=== PATIENT | female | born 1970 | race Caucasian/White ===

== ENCOUNTER 2019-01-17 18:54 | Emergency (ER) | payer BC, SELFPAY ==
[2019-01-17 19:00] VITALS: BP 195/94; PULSE 60; RESP 16; TEMP 36.6; O2SAT 100
[2019-01-17] MEDS: Acetaminophen 500 MG TAB 1000 MG PO (19:10)
[2019-01-17] MEDS: Ibuprofen 600 MG TAB (19:10)
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
--- NOTE | 2019-01-17 21:07 | DI.RAD_ITS ---
SYMPTOM/DIAGNOSIS: POST REDUCTION RIGHT WRIST: Three views. Comparison from earlier in the day. There is again seen a comminuted intra-articular fracture of the distal right radius. Since the prior examination there has been significant improvement in the alignment of the fracture with near anatomic alignment present. No new fracture or dislocation is seen. The patient's wrist is in a cast. IMPRESSION: Reduction of the comminuted intra-articular fracture of the distal right radius with improved alignment.
[2019-01-17 21:20] VITALS: BP 152/85; PULSE 60; RESP 16; TEMP 36.8; O2SAT 99
--- NOTE | 2019-01-17 21:28 | DI.VRAD_ITS ---
EXAM: XR Right Wrist EXAM DATE/TIME: 01/17/2019 9:03 PM CLINICAL HISTORY: 48 years old, female; Injury or trauma; Follow-up exam; Fracture, traumatic injury; Closed fracture; Right; Distal end; Injury date: 01/17/2019; Injury details: Post reduction of impacted comminuted distal radius fracture TECHNIQUE: Imaging protocol: XR Right wrist. Views: 3 or more views. COMPARISON: CR XR wrist RT complete 01/17/2019 7:38 PM FINDINGS: Bones/joints: The bones are viewed through a cast degrading detail. An impacted comminuted fracture distal radius is again identified involving articular surface in improved alignment. Soft tissues: Normal. IMPRESSION: Improved alignment post casting of an impacted comminuted fracture of the distal radius involving articular surface of the wrist. Dictated and Authenticated by: Nick Flower MD. Ordering:FADI Drew MD
== END 2019-01-17 21:35 | disposition home or self-care (01) ==
PROVIDERS: Emergency Provider Physician Assistant
DX: S52.571A Other intraarticular fracture of lower end of right radius, initial encounter for closed fracture (principal); S40.211A Abrasion of right shoulder, initial encounter; V18.0XXA Pedal cycle driver injured in noncollision transport accident in nontraffic accident, initial encounter; Y93.55 Activity, bike riding
CPT/HCPCS: 25600; 73110; L3650

== ENCOUNTER 2019-01-24 11:09 | Outpatient (CLI) | payer BC, SELFPAY ==
--- NOTE | 2019-01-24 10:36 | DI.RAD_ITS ---
SYMPTOMS/DIAGNOSIS: F/U RIGHT WRIST: Comparison is made with December,. A splint is in place, which somewhat obscures the bony detail on the PA view. Comminuted fracture of the distal radius shows improved alignment when compared with the previous exam.
== END 2019-01-24 11:29 ==
PROVIDERS: Visit Provider Orthopaedic Surgery
DX: S52.571D Other intraarticular fracture of lower end of right radius, subsequent encounter for closed fracture with routine healing (principal)
CPT/HCPCS: 73100

== ENCOUNTER 2019-01-29 00:33 | Outpatient (CLI) | payer BC, SELFPAY ==
--- NOTE | 2019-01-29 11:31 | DI.CT_ITS ---
SYMPTOM/DIAGNOSIS: FX DISTAL END OF RT RADIUS, S52.501A RIGHT WRIST CT: CT examination of the wrist was performed according to the usual protocol. There is a comminuted impacted fracture of the distal radius. There is complex involvement of the distal articular surface of the radius, maximum displacement about 2 mm. No additional fracture is seen involving the ulna or the bones of the carpus. Carpal alignment appears within normal limits except for a questioned slight widening of the navicular lunate joint which could indicate ligamentous injury, acute versus chronic.
== END 2019-01-29 00:53 ==
PROVIDERS: Visit Provider Physician Assistant
DX: S52.501A Unspecified fracture of the lower end of right radius, initial encounter for closed fracture (principal)
CPT/HCPCS: 73200

== ENCOUNTER 2019-01-30 10:32 | Outpatient (CLI) | payer BC, SELFPAY ==
--- NOTE | 2019-01-30 10:29 | DI.RAD_ITS ---
SYMPTOM/DIAGNOSIS: F/U RIGHT WRIST: 01/30 No gross interval change in alignment of fracture fragments of the comminuted fracture of the distal radius in comparison with examination of January 24.
== END 2019-01-30 10:52 ==
PROVIDERS: Visit Provider Orthopaedic Surgery
DX: S52.571D Other intraarticular fracture of lower end of right radius, subsequent encounter for closed fracture with routine healing (principal)
CPT/HCPCS: 73100

== ENCOUNTER 2019-02-07 11:22 | Outpatient (CLI) | payer BC, SELFPAY ==
--- NOTE | 2019-02-07 10:49 | DI.RAD_ITS ---
EXAM: XR WRIST RT COMPLETE INDICATION: f/u. COMPARISON: XR wrist RT limited from 01/30/2019 TECHNIQUE: 2D digital imaging was performed. FINDINGS: Three views were obtained with the wrist in a cast. Previously described fracture of the distal radi us again noted with no gross interval change in alignment of the fracture fragments in comparison wit h the examination of January 30.
== END 2019-02-07 11:42 ==
PROVIDERS: Visit Provider Orthopaedic Surgery
DX: S52.571D Other intraarticular fracture of lower end of right radius, subsequent encounter for closed fracture with routine healing (principal)
CPT/HCPCS: 73110

== ENCOUNTER 2019-02-14 10:26 | Outpatient (CLI) | payer BC, SELFPAY ==
--- NOTE | 2019-02-14 10:15 | DI.RAD_ITS ---
EXAM: XR WRIST RT LIMITED INDICATION: F/U FRACTURE. COMPARISON: XR WRIST RT COMPLETE from 02/07/2019 TECHNIQUE: 2D digital imaging was performed. FINDINGS: AP and lateral images obtained through a fiberglass splint demonstrate no appreciable interval change in the status of a fracture involving the distal radius.
== END 2019-02-14 10:46 ==
PROVIDERS: Visit Provider Orthopaedic Surgery
DX: S52.511D Displaced fracture of right radial styloid process, subsequent encounter for closed fracture with routine healing (principal)
CPT/HCPCS: 73100

== ENCOUNTER 2019-02-21 11:46 | Outpatient (CLI) | payer BC, SELFPAY ==
--- NOTE | 2019-02-21 10:15 | DI.RAD_ITS ---
EXAM: XR WRIST RT LIMITED INDICATION: f/u. COMPARISON: XR wrist RT limited from 01/24/2019 XR WRIST RT LIMITED from 02/14/2019 TECHNIQUE: 2D digital imaging was performed. FINDINGS: There is no change in alignment of the comminuted fracture of the distal right radius. The patient's wrist is in a cast. This does obscure the underlying bony detail.
== END 2019-02-21 12:06 ==
PROVIDERS: Visit Provider Orthopaedic Surgery
DX: S52.571D Other intraarticular fracture of lower end of right radius, subsequent encounter for closed fracture with routine healing (principal)
CPT/HCPCS: 73100

== ENCOUNTER 2019-03-07 13:18 | Outpatient (CLI) | payer BC, SELFPAY ==
--- NOTE | 2019-03-07 11:11 | DI.RAD_ITS ---
EXAM: XR WRIST RT COMPLETE INDICATION: f/u. COMPARISON: XR WRIST RT LIMITED from 02/21/2019 TECHNIQUE: 2D digital imaging was performed. FINDINGS: Cast has been removed. There has been no change in the alignment of the comminuted intra-articular fracture of distal radius. There has been some interval healing when compared with the previous exam .
== END 2019-03-07 13:38 ==
PROVIDERS: Visit Provider Orthopaedic Surgery
DX: S52.511D Displaced fracture of right radial styloid process, subsequent encounter for closed fracture with routine healing (principal)
CPT/HCPCS: 73110

== ENCOUNTER 2019-12-18 10:24 | Outpatient (REF) | payer BC, SELFPAY ==
--- NOTE | 2019-12-18 09:20 | PAPFT_PTH ---
PATIENT: Julee Alaniz LOC: [facility] U#:[id number] AGE/SX: 49/F ROOM: RE12/18/[address]: KEENAN Alvarado : 1970 BED: DIS: 12/18/2019 SPEC #: [id number] RECD: 12/18/19 12:41 STATUS: GLENDA REQ #: [id number] ANNA: 12/18/19 09:[address]: Josy Randolph DEPT: [facility] Cytology RECD BY: Lilibeth Easley ENTERED: 12/18/19 12:41 SP TYPE: PAPFT OT DR: Unknown,Unknown Tissues: 1 - CX/ENDOCX FOR PAP SMEARS Procedures: PAP THIN PREP/UVM Screening HPV DNA PROBE Comments: [id number]
== END 2019-12-18 10:44 ==
LOC: LBN 10:24
PROVIDERS: Visit Provider Nurse Practitioner Family
DX: Z12.4 Encounter for screening for malignant neoplasm of cervix (principal); Z11.59 Encounter for screening for other viral diseases
CPT/HCPCS: 88142; 87624

== ENCOUNTER 2019-12-21 02:11 | Outpatient (CLI) | payer BC, SELFPAY ==
[2019-12-21 09:23] LABS: Abs Immature Grans 0.01 10^3/uL (0.0-0.06); Absolute Basophil Count 0.06 10^3/uL (0.0-0.2); Absolute Eosinophil Count 0.16 10^3/uL (0.0-0.7); Absolute Lymphocyte Count 2.01 10^3/uL (1.2-3.4); Absolute Monocyte Count 0.45 10^3/uL (0.1-0.8); Absolute Neutrophil Count 2.11 10^3/uL (1.2-6.7); Basophils % 1.3; Eosinophils % 3.3; HCT 39.1 % (36.0-46.0); Immature Grans % 0.2; Lymphocytes % 41.9; MCH 30.5 pg (27.0-33.0); MCHC 33.2 % (32.0-36.0); MCV 91.8 fL (80-95); Monocytes % 9.4; Neutrophils % 43.9; Platelet Count 320 10^3/uL (130-400); RBC 4.26 10^6/uL (3.93-5.22); RDW-SD 43.5 fL
[2019-12-21 09:45] LABS: Bilirubin Negative (Negative); Blood Negative (Negative); Clarity Clear (Clear); Glucose Negative (Negative); Ketones Negative (Negative); Leukocyte Esterase Negative (Negative); Nitrite Negative (Negative); Urobilinogen 0.2 EU/dL (Up TO 0.2); pH 7.5 (5-8)
[2019-12-21 10:15] LABS: ALT 38 U/L (14-59); AST 25 U/L (15-37); Albumin 3.7 g/dL (3.4-5.0); Alkaline Phosphatase 35 U/L (46-116); Anion Gap 6.8 mmol/L (3-11); BUN 13 mg/dL (7-18); Bilirubin, Total 0.6 mg/dL (0.2-1.0); CO2 29.2 mmol/L (21.0-32.0); CREATININE 0.71 mg/dL (0.55-1.02); Calcium 8.8 mg/dL (8.5-10.1); Chloride 105 mmol/L (98-107); FREE T4 1.01 ng/dL (0.76-1.46); Glucose 86 mg/dL (74-106); Potassium 4.4 mmol/L (3.5-5.1); Sodium 141 mmol/L (136-145); TSH 1.58 uIU/mL (0.36-3.74); Total Protein 6.8 g/dL (6.4-8.2)
[2019-12-21 10:30] LABS: Calculated LDL 144 mg/dL (<100); Cholesterol 232 mg/dL (<200); HDL Cholesterol 79 mg/dL (40-60); Triglyceride 48 mg/dL (<150)
[2019-12-21 17:23] LABS: T3,Free 3.9 pg/mL (2.8-5.3)
[2019-12-21 17:32] LABS: Estradiol 213 pg/mL (See Note); Progesterone 0.7 ng/mL (See Table)
== END 2019-12-21 02:31 ==
PROVIDERS: PCP Naturopath; Visit Provider Naturopath
DX: R53.83 Other fatigue (principal); N95.1 Menopausal and female climacteric states; F51.01 Primary insomnia; R42 Dizziness and giddiness; N91.5 Oligomenorrhea, unspecified; Z13.1 Encounter for screening for diabetes mellitus; Z13.220 Encounter for screening for lipoid disorders
CPT/HCPCS: 36415; 80053; 80061; 81003; 82670; 84144; 84439; 84443; 84481; 85025; 85303

== ENCOUNTER 2020-01-08 01:07 | Outpatient (CLI) | payer BC, SELFPAY ==
--- NOTE | 2020-01-08 16:00 | DI.MAMMO_ITS ---
EXAM: MAMMO SCREENING CLINICAL HISTORY: screening TECHNIQUE: Mammograms were interpreted according to the usual protocol including computer analysis w [employer] CAD system, tomosynthesis and C-view imaging. COMPARISON: 2008 through 2017 from [facility]. FINDINGS: The breasts are composed of heterogeneously dense fibroglandular densities, Breast Density category C . No suspicious masses or suspicious microcalcifications are seen. No skin thickening or abnormal axillary lymph nodes are seen. There has been no significant change from prior exams. IMPRESSION: BI-RADS Category 1: Negative mammogram Yearly screening mammography is recommended. Breast Density Category C, heterogeneously dense tissue which decreases the sensitivity of the mammog marci. The mammogram demonstrates the patient's breast tissue is dense. Dense breast tissue is very common a nd is not abnormal but dense breast tissue can make it harder to find cancer on a mammogram. Also, de nse breast tissue may increase breast cancer risk. This information about the result of the mammogram report was provided to the patient to raise their awareness. Use this report when you speak with the patient about their risks for breast cancer, which includes their family history. At that time, you may recommend additional screening tests (Ultrasound or MRI) as they might be useful based on their r isk. A negative radiographic report should not delay biopsy if a dominant or clinically suspicious mass is present. Up to ten percent of cancers are not identified on mammography. A negative report may reinforce clinical impression. Adenosis and dense breasts may obscure an underlying neoplasm. False positive reports average 6 to 10%.
== END 2020-01-08 01:27 ==
PROVIDERS: PCP Naturopath; Visit Provider Nurse Practitioner Family
DX: Z12.31 Encounter for screening mammogram for malignant neoplasm of breast (principal); R92.2 Inconclusive mammogram
CPT/HCPCS: 77063; 77067

== ENCOUNTER 2020-04-10 13:14 | Outpatient (REF) | payer BC, SELFPAY | END 2020-04-10 13:34 | LOC: LBN 13:14 | PROVIDERS: PCP Naturopath; Visit Provider Nurse Practitioner Family | DX: R30.0 Dysuria (principal) | CPT/HCPCS: 87086 ==

== ENCOUNTER 2020-07-23 14:06 | Outpatient (CLI) | payer BC, SELFPAY ==
--- NOTE | 2020-07-23 11:00 | RT.EKG_ITS ---
APPROVED REPORT Exam: Resting ECG Patient Location: O HR:53 bpm ECG Measurements Heart Rate 53 AXIS MI 201 P 23 QRSd 88 QRS 68 QT 435 T 23 QTc 410 Conclusion Sinus bradycardia...rate< 60 ST elevation secondary to LVH...Multiple VCG criteria
== END 2020-07-23 14:07 | disposition home or self-care (01) ==
LOC: RT 07-25 14:06
PROVIDERS: PCP Naturopath; Visit Provider Naturopath
DX: I10 Essential (primary) hypertension (principal)
CPT/HCPCS: 93005; 93010

== ENCOUNTER 2020-09-02 09:41 | Outpatient (CLI) | payer BC, SELFPAY ==
--- NOTE | 2020-09-02 09:30 | RT.EKG_ITS ---
APPROVED REPORT Exam: Resting ECG Patient Location: O HR:54 bpm ECG Measurements Heart Rate 54 AXIS TX 184 P 43 QRSd 76 QRS 72 QT 426 T 35 QTc 404 Conclusion Sinus rhythm...normal P axis, V-rate 50- 99 LVH voltage Baseline wander in lead(s) II,aVR
== END 2020-09-02 09:42 | disposition home or self-care (01) ==
LOC: DI.CARD 09:42
PROVIDERS: PCP Student in an Organized Health Care Education/Training Program; Visit Provider Internal Medicine Cardiovascular Disease
DX: I10 Essential (primary) hypertension (principal)
CPT/HCPCS: 93010

== ENCOUNTER 2020-09-19 02:03 | Outpatient (CLI) | payer BC, SELFPAY ==
[2020-09-19 08:13] LABS: Abs Immature Grans 0.01 10^3/uL (0.0-0.06); Absolute Basophil Count 0.06 10^3/uL (0.0-0.2); Absolute Eosinophil Count 0.24 10^3/uL (0.0-0.7); Absolute Lymphocyte Count 2.99 10^3/uL (1.2-3.4); Absolute Monocyte Count 0.46 10^3/uL (0.1-0.8); Absolute Neutrophil Count 2.43 10^3/uL (1.2-6.7); Eosinophils % 3.9; HCT 38.7 % (36.0-46.0); HGB 13.2 g/dL (11.2-15.7); Immature Grans % 0.2; Lymphocytes % 48.3; MCHC 34.1 % (32.0-36.0); MCV 90.8 fL (80-95); MPV 9.5 fL (8.0-11.0); Monocytes % 7.4; Neutrophils % 39.2; Nucleated RBC 0 %; Platelet Count 339 10^3/uL (130-400); RBC 4.26 10^6/uL (3.93-5.22); RDW 12.2 % (11.7-14.6); RDW-SD 40.8 fL; WBC 6.19 10^3/uL (4.4-10.8)
[2020-09-19 08:50] LABS: ALT 37 U/L (14-59); AST 20 U/L (15-37); Albumin 3.9 g/dL (3.4-5.0); Alkaline Phosphatase 38 U/L (46-116); Anion Gap 8.1 mmol/L (3-11); BUN 13 mg/dL (7-18); Bilirubin, Total 0.5 mg/dL (0.2-1.0); CO2 31.9 mmol/L (21.0-32.0); CREATININE 0.8 mg/dL (0.55-1.02); Calcium 9.3 mg/dL (8.5-10.1); Chloride 104 mmol/L (98-107); Glucose 92 mg/dL (74-106); Potassium 4.6 mmol/L (3.5-5.1); Sodium 144 mmol/L (136-145); Total Protein 7.3 g/dL (6.4-8.2)
[2020-09-19 08:59] LABS: Cholesterol 240 mg/dL (<200)
[2020-09-19 16:32] LABS: CRP, High Sensitivity 1.41 mg/L (See Note)
[2020-09-20 12:32] LABS: Apolipoprotein B, S 111 mg/dL
[2020-09-20 12:37] LABS: Apolipoprotein A1 166 mg/dL (>=140)
[2020-09-23 15:48] LABS: 25-Hydroxy D Total 69 ng/mL; 25-Hydroxy D2 <4.0 ng/mL; 25-Hydroxy D3 69 ng/mL
== END 2020-09-19 02:04 | disposition home or self-care (01) ==
LOC: LBO 02:03
PROVIDERS: PCP Student in an Organized Health Care Education/Training Program; Visit Provider Naturopath
DX: D50.9 Iron deficiency anemia, unspecified (principal); R53.83 Other fatigue; I10 Essential (primary) hypertension; E55.9 Vitamin D deficiency, unspecified; Z00.00 Encounter for general adult medical examination without abnormal findings; E78.00 Pure hypercholesterolemia, unspecified
CPT/HCPCS: 36415; 80053; 82172; 82306; 86141; 86900; 86901; 82465; 85025

== ENCOUNTER 2021-02-02 02:12 | Outpatient (CLI) | payer BC, SELFPAY ==
--- NOTE | 2021-02-02 | DI.MAMMO_ITS ---
Exam(s) MAMMO SCREENING EXAM: MAMMO SCREENING CLINICAL HISTORY: SCREENING, Z12.39 TECHNIQUE: Mammograms were interpreted according to the usual protocol including computer analysis w [employer] CAD system, tomosynthesis and C-view imaging. COMPARISON: 2011 through 2019 FINDINGS: The breasts are composed of heterogeneously dense fibroglandular densities, Breast Density category C . No suspicious masses or suspicious microcalcifications are seen. Scattered benign calcifications are again noted. No skin thickening or abnormal axillary lymph nodes are seen. There has been no significant change from prior exams. IMPRESSION: BI-RADS Cat 2 - Benign Findings Yearly screening mammography is recommended. Breast Density Category C, heterogeneously Dense. The mammogram demonstrates the patient's breast tissue is dense. Dense breast tissue is very common a nd is not abnormal but dense breast tissue can make it harder to find cancer on a mammogram. Also, de nse breast tissue may increase breast cancer risk. This information about the result of the mammogram report was provided to the patient to raise their awareness. Use this report when you speak with the patient about their risks for breast cancer, which includes their family history. At that time, you may recommend additional screening tests (Ultrasound or MRI) as they might be useful based on their r isk. A negative radiographic report should not delay biopsy if a dominant or clinically suspicious mass is present. Up to ten percent of cancers are not identified on mammography. A negative report may reinforce clinical impression. Adenosis and dense breasts may obscure an underlying neoplasm. False positive reports average 6 to 10%.
== END 2021-02-02 02:32 ==
PROVIDERS: PCP Student in an Organized Health Care Education/Training Program; Visit Provider Student in an Organized Health Care Education/Training Program
DX: Z12.31 Encounter for screening mammogram for malignant neoplasm of breast (principal)
CPT/HCPCS: 77063; 77067

== ENCOUNTER 2021-02-06 01:27 | Outpatient (CLI) | payer BC, SELFPAY ==
[2021-02-06 12:25] LABS: Source Nasal/Nares
[2021-02-06 16:37] LABS: COVID-19 PCR Negative (Negative)
== END 2021-02-06 01:28 | disposition home or self-care (01) ==
LOC: LBO 01:27
PROVIDERS: Surgery; PCP Student in an Organized Health Care Education/Training Program; Visit Provider Physical Therapy Assistant
DX: Z20.822 Contact with and (suspected) exposure to COVID-19 (principal)
CPT/HCPCS: 87635

== ENCOUNTER 2021-02-09 09:18 | Day surgery (SDC) | payer BC, SELFPAY ==
--- NOTE | 2021-02-09 06:49 | W.COLOREPORT ---
Colonoscopy Report Date of procedure: 02/09/21 Pre-op diagnosis general: Colon Cancer screening Post-op diagnosis procedure note: same (mild diverticulosis) Procedure: Colonoscopy Surgeon: Negrita Rao Anesthesia Type: General:No Airway (Yoselin Ramos CRNA) Estimated blood loss (mL): 0 Pathology: none sent Complications: None Disposition: same day Indications: The patient is here for Colonoscopy pre-op. She has no family history of colon cancer. She has not had any bowel habit changes. -Discussed colonoscopy bowel prep as well as the procedure. Discussed possible complications of the procedure to include bleeding, pain, perforation, missed small lesion/polyp, sore throat, aspiration and adverse reaction to the medications. Questions were answered to patient?s satisfaction. No guarantees were implied or given. Prep: Miralax/Dulcolax Procedure Start Time: 10:25 Procedure End Time: 10:47 Retraction Time: 13 minutes Procedure Description: After informed consent was obtained the patient was taken to the procedure room and placed in a left decubitous position. Monitors were applied and a time out was done. The patients name, date of , procedure, allergies to medications and metal in their body was reviewed. The patient was then sedated. Once sedated and comfortable a rectal exam was done. External exam was normal. Internal exam revealed a normal sphincter tone and no palpable masses. The scope was then introduced and retro-flexed. No internal hemorrhoids, polyps or masses were identified on retro-flexion. The scope was then advanced to the cecum without difficulty. The ileocecal vlave and appendiceal orifice were identified. The prep was good. The scope was then slowly retracted over 13 minutes back into the rectum. There were no polyps. There was mild sigmoid diverticulosis noted. The scope was removed and the patient was woken up and taken back to Same day surgery in stable condition. The patient tolerated the procedure well and there were no immediate complications. Follow up: The patient should follow up in 10 years unless they develop changes in bowel habits or other new gastrointestinal complaints.
--- NOTE | 2021-02-09 06:50 | W.PM.DSUDISC ---
Discharge Plan Disposition Patient Disposition: HOME Condition: Good Discharge Details Reason For Visit: Colonoscopy Attending Provider: Negrita Rao Primary Care Provider: Poppy Leblanc Home Meds and New Rx's Prescriptions: Continued lisinopril 20 mg tablet 20 mg PO DAILY Qty: 90 RF: 3 multivitamin Tablet 1 tab PO DAILY RF: 0 Discontinued polyethylene glycol 3350 17 gram/dose powder 238 g PO ONCE Qty: 238 RF: 0 bisacodyl [Dulcolax (bisacodyl)] 5 mg tablet,delayed release (DR/EC) 5 mg PO ONCE Qty: 4 RF: 0 Discharge Instructions Additional Instructions: Findings: mild diverticulosis Follow up: 10 years Please call if you develop: fevers >101.5 Nausea or Vomiting Abdominal pain that is not transient Rectal bleeding that is more then a tbsp A hard abdomen and inability to pass gas DAY SURGERY UNIT POST ENDOSCOPY INSTRUCTIONS Instructions for everyone who is given Anesthesia: For your safety, please do the following for the next 24 Hours: a. Do not drive or operate dangerous equipment b. Do not drink alcohol beverages or use any recreational drugs for the first 24 hours or while taking pain medications. The medications in your body may have a reaction that can be dangerous. c. Do not make any important decisions or sign any important papers 1. Generally there are no restrictions on your activity after a day or so has gone by, but you may feel a bit fatigued for a few days. 2. After you arrive home you may have a light meal and return to a normal diet as you can tolerate it without feeling sick to your stomach. 3. After surgery, you may feel pain or discomfort. This should be only transient, but if it persists please contact your doctor. 4. If there are any questions regarding the findings of your procedure, please feel free to contact your doctor. 6. If you are unable to contact your doctor with a problem, contact the hospital at [phone]. 7. Continue all your regular medications unless directed otherwise. I understand the above instructions and have no questions. Signature of Patient or Responsible Adult Escort Date/Time Name of Responsible Adult Escort Signature of Nurse Date/Time Activity:: Activity as Tolerated Diet:: high fiber diet Discharge Orders Discharge Orders: Discharge Order (Routine); Ordered 02/09/21 Ordered By: Negrita Rao
[2021-02-09 09:29] VITALS: BP 92/49; PULSE 48; RESP 18; TEMP 36.5; O2SAT 100
--- NOTE | 2021-02-09 09:29 | W.ANESPRE ---
General Info Date of Service Date Performed: 02/09/21 Height: 5 ft 2 in Weight: 55.395 kg Body Mass Index (BMI): 22.3 Surgical Procedure: Operation Date: 02/09/21 10:35 Proposed Procedures Side Surgeon p Colonoscopy Negrita Rao MD Meds Allergies and Home Medications Allergies Allergy/AdvReac Type Severity Reaction Status Date / Time No Known Allergies Allergy Verified 02/09/21 09:34 Home Medication Medication Instructions Recorded multivitamin 1 tab PO DAILY 01/17/19 lisinopril 20 mg tablet 20 mg PO DAILY #90 tab 09/04/20 bisacodyl 5 mg tablet,delayed 5 mg PO ONCE #4 tab 01/30/21 release polyethylene glycol 3350 17 238 g PO ONCE #238 g 01/30/21 gram/dose oral powder Current Visit Medications: Current Medications Generic Name Dose Route Start Last Admin Trade Name Freq PRN Reason Stop Dose Admin Hyoscyamine Sulfate 0.125 mg 02/09/21 06:50 Hyoscyamine 0.125 Mg Sl/Oral/Chew SL DIRECTED PRN Ondansetron HCl 4 mg 02/09/21 06:50 Ondansetron 4 Mg/2 Ml Vial IVP Q4H PRN PRN Nausea / Vomiting PFSH Active Problems Active Problems: Problem Status Onset Code Health care maintenance Z00.00 Essential hypertension ~07/2020 I10 Nutritional deficiency, unspecified E63.9 Primary insomnia F51.01 Pure hypercholesterolemia, unspecified E78.00 Menopausal and female climacteric states N95.1 Medical History Medical History H/O abnormal cervical Papanicolaou smear s/p colposcopy Health care maintenance Menopausal and female climacteric states 05/29/17 Mononucleosis Nutritional deficiency, unspecified Primary insomnia Pure hypercholesterolemia, unspecified Familial? ASCVD Risk per ca.2% (10yr), no statin Tx ok. Wrist fracture, right Surgical History Surgical History H/O lumpectomy Benign left breast Bx - 2008 History of delivery x2 2002, 2004 Tobacco Smoking/Tobacco Use Status: Never Alcohol Alcohol Intake: never Substance Use Substance use: Occasionally Substance use type: marijuana Vital Signs and Lab Results Vital Signs Most Recent Vital Signs in EMR: Temp Pulse Resp BP Pulse Ox 36.5 C 48 L 18 92/49 L 100 02/09/21 09:29 02/09/21 09:29 02/09/21 09:29 02/09/21 09:29 02/09/21 09:29 Lab Results Blood Type / Crossmatch: No Data to Display Complete Blood Count: No Data to Display Complete Metabolic Panel: No Data to Display Liver Function Panel: No Data to Display Coagulation Panel: No Data to Display Cardiac Panel: No Data to Display Arterial Blood Gas: No Data to Display Venous Blood Gas: No Data to Display Pancreas Panel: No Data to Display Thyroid Panel: No Data to Display Infectious Disease: Coronavirus (COVID-19)(PCR) Negative (Negative) 02/06/21 12:24 02/06/21 Coronavirus 2019 Source Nasal/Nares 02/06/21 12:24 02/06/21 Blood Cultures: No Data to Display Toxicology Panel: No Data to Display Panel: No Data to Display Imaging and Studies Imaging and Studies EKG Summary: 08/2020: sinus rhythm, normal p axis. LVH voltage. Anesthesia Assessment and Plan Anesthesia History Personal History: No History of Anesthesia Complications Family History: No Family History of Anesthesia Complications Exercise Tolerance Exercise Tolerance: Metabolic Equivalents>4 Cardiac & Pulmonary Exam Cardiac Exam: Normal S1/S2 Heart Sounds Pulmonary Exam: Clear Bilateral Breath Sounds Airway Exam Known Difficult Airway: No Mallampati Class: 2 Mouth Opening: Normal (> 3cm) Thyromental Distance: Greater than 3 cm Neck Range of Motion: Full ROM Neck Circumference: Normal Teeth Condition: Normal Dentition ASA Classification ASA Score: ASA 2 Emergency Case?: No NPO Status NPO Status: NPO Clears >2 hours, Solids >8 hours Status Status: Not Relevant due to Medical History Anesthesia Plan Resuscitation Status: Full Code Anesthesia Technique: General Anesthesia Airway Planned: Natural Airway Monitors Used: Standard Monitors Preoperative Comments:: 51 yo female for screening colonoscopy. PMHX of HTN (on lisinopril).
[2021-02-09 09:49] VITALS: BMI 22.3
[2021-02-09] MEDS: Lactated Ringers 1,000 ML 80 ML IV (10:05)
[2021-02-09 10:57] VITALS: BP 166/82; PULSE 54; RESP 16; TEMP 36.1; O2SAT 98
[2021-02-09 11:32] VITALS: BP 150/92; PULSE 48; RESP 16; TEMP 36.3; O2SAT 100
--- NOTE | 2021-02-09 11:35 | W.ANESPOSTOP ---
Postoperative Evaluation Date, Time and Location Date Performed: 02/09/21 Time Performed: 11:02 Patient Location: Day Surgery Unit Vital Signs Most Recent Imported Vital Signs: Most Recent Vital Signs Temp Pulse Resp BP Pulse Ox 36.1 C L 54 L 16 166/82 H 98 02/09/21 10:57 02/09/21 10:57 02/09/21 11:32 02/09/21 10:57 02/09/21 10:57 Pain Score Most Recent Pain Score: Most Recent Pain Score Pain Level 0 02/09/21 11:32 Assessment Mental Status: Awake (Alert & Oriented to Patient Baseline) Airway and Respiratory Function: Patent airway with normal (patient baseline) respiratory exam Cardiovascular Function: Hemodynamically Stable Hydration Status: Adequately Hydrated Nausea & Vomiting: No Nausea or Vomiting Pain: Pt. Denies Any Pain Peripheral Nerve Block: Patient did not receive a nerve block
== END 2021-02-09 11:48 | disposition home or self-care (01) ==
LOC: SUR 09:18
PROVIDERS: PCP Student in an Organized Health Care Education/Training Program; Visit Provider Surgery
PROC: 0DJD8ZZ Inspection of Lower Intestinal Tract, Via Natural or Artificial Opening Endoscopic (ICD-10-PCS; CPT 45378; principal; 2021-02-09 10:30)
DX: Z12.11 Encounter for screening for malignant neoplasm of colon (principal); I10 Essential (primary) hypertension; K57.30 Diverticulosis of large intestine without perforation or abscess without bleeding
CPT/HCPCS: 45378; J2001

== ENCOUNTER 2021-12-25 01:33 | Outpatient (CLI) | payer BC, SELFPAY ==
[2021-12-25 07:46] LABS: Abs Immature Grans 0.01 10^3/uL (0.0-0.06); Absolute Basophil Count 0.06 10^3/uL (0.0-0.2); Absolute Eosinophil Count 0.26 10^3/uL (0.0-0.7); Absolute Lymphocyte Count 2.03 10^3/uL (1.2-3.4); Absolute Monocyte Count 0.46 10^3/uL (0.1-0.8); Absolute Neutrophil Count 2.34 10^3/uL (1.2-6.7); Basophils % 1.2; HCT 39.2 % (36.0-46.0); HGB 13.3 g/dL (11.2-15.7); Immature Grans % 0.2; Lymphocytes % 39.3; MCH 30.7 pg (27.0-33.0); MCHC 33.9 % (32.0-36.0); MCV 91 fL (80-95); MPV 9.7 fL (8.0-11.0); Monocytes % 8.9; Neutrophils % 45.4; Platelet Count 337 10^3/uL (130-400); RBC 4.33 10^6/uL (3.93-5.22); RDW 11.8 % (11.7-14.6); RDW-SD 39.5 fL; WBC 5.16 10^3/uL (4.4-10.8)
[2021-12-25 08:09] LABS: ALT 20 U/L (14-59); AST 19 U/L (15-37); Albumin 3.8 g/dL (3.4-5.0); Alkaline Phosphatase 35 U/L (46-116); Anion Gap 6.3 mmol/L (3-11); BUN 16 mg/dL (7-18); Bilirubin, Total 0.5 mg/dL (0.2-1.0); CO2 30.7 mmol/L (21.0-32.0); CREATININE 0.7 mg/dL (0.55-1.02); Calcium 8.9 mg/dL (8.5-10.1); Calculated LDL 143 mg/dL (<100); Chloride 106 mmol/L (98-107); Cholesterol 228 mg/dL (<200); Glucose 96 mg/dL (74-106); HDL Cholesterol 76 mg/dL (40-60); Potassium 3.8 mmol/L (3.5-5.1); Sodium 143 mmol/L (136-145); Total Protein 7.5 g/dL (6.4-8.2); Triglyceride 48 mg/dL (<150)
[2021-12-25 18:05] LABS: Progesterone 2.9 ng/mL (See Table)
[2021-12-28 09:47] LABS: DHEA Sulfate 98 ug/dL (56-283)
[2021-12-28 14:45] LABS: Apolipoprotein B, S 95 mg/dL
[2021-12-28 15:14] LABS: Apolipoprotein A1 149 mg/dL (>=140)
[2021-12-31 00:07] LABS: 25-Hydroxy D Total 46 ng/mL; 25-Hydroxy D2 <4.0 ng/mL; 25-Hydroxy D3 46 ng/mL
== END 2021-12-25 01:34 | disposition home or self-care (01) ==
LOC: LBO 01:33
PROVIDERS: PCP Student in an Organized Health Care Education/Training Program; Visit Provider Naturopath
DX: E78.00 Pure hypercholesterolemia, unspecified (principal); D50.9 Iron deficiency anemia, unspecified; R53.83 Other fatigue; I10 Essential (primary) hypertension; E55.9 Vitamin D deficiency, unspecified; N95.1 Menopausal and female climacteric states; Z86.16 Personal history of COVID-19
CPT/HCPCS: 36415; 80048; 80053; 80061; 82172; 82306; 82627; 84144; 85025

== ENCOUNTER → 2022-02-04 01:38 | Outpatient (CLI) | payer BC, SELFPAY ==
--- NOTE | 2022-02-04 09:02 | DI.MAMMO_ITS ---
Exam(s) MAMMO SCREENING EXAM: MAMMO SCREENING CLINICAL HISTORY: screening,z12.39 TECHNIQUE: Bilateral full field digital CC and MLO mammographic images were obtained with 3D tomosyn thesis and utilizing computer aided detection (CAD). COMPARISON: Available for comparison. FINDINGS: Masses/Architectural Distortion: None seen. There is a partially obscured nodule in the upper outer q uadrant of the left breast. It is shown slight increase in size. Microcalcifications: No suspicious pleomorphic-type are seen. Skin Thickening/Nipple Retraction: None. IMPRESSION: 1. Partially obscured 2.4 cm nodule in the upper outer quadrant of the left breast. 2. Further evaluation with a spot compression view and left breast ultrasound is recommended. BI-RADS Category 0 - Assessment Incomplete: Need additional imaging evaluation Breast Density - Category C - Heterogeneously dense Breast density category C or D implies that the patient has dense breast tissue. Dense breast tissue is very common and is not abnormal but dense breast tissue can make it harder to find cancer on a ma mmogram. Also, dense breast tissue may increase their breast cancer risk. This information about the result of the mammogram report was provided to the patient to raise their awareness. Use this report when you speak with the patient about their risks for breast cancer, which includes their family hist ory. At that time, you may recommend for more screening tests (Ultrasound or MRI) as they might be us eful based on their risk. A negative radiographic report should not delay biopsy if a dominant or clinically suspicious mass is present. Up to ten percent of cancers are not identified on mammography. A negative report may reinforce clinical impression. Adenosis and dense breasts may obscure an underlying neoplasm. False positive reports average 6 to 10%. Patient will receive a letter notifying them of these results.
== END ==
PROVIDERS: PCP Student in an Organized Health Care Education/Training Program; Visit Provider Nurse Practitioner Family
DX: Z12.31 Encounter for screening mammogram for malignant neoplasm of breast (principal); N63.21 Unspecified lump in the left breast, upper outer quadrant
CPT/HCPCS: 77063; 77067

== ENCOUNTER 2022-10-01 15:06 | Emergency (ER) | payer BC, SELFPAY ==
[2022-10-01] VITALS (37 sets, daily range): BP systolic 126–157; BP diastolic 77–97; PULSE 52–66; RESP 12–19; TEMP 36.4–37.1; O2SAT 96–100
--- NOTE | 2022-10-01 15:00 | RT.EKG_ITS ---
APPROVED REPORT Exam: Resting ECG Reason for Exam: chest pain Patient Location: E HR:57 bpm ECG Measurements Heart Rate 57 AXIS NJ 175 P 34 QRSd 89 QRS 42 QT 423 T 29 QTc 412 Conclusion Sinus bradycardia...rate< 60 No major change vs 09/02/20
--- NOTE | 2022-10-01 15:14 | ED.GENADUL_ITS ---
Discharge Plan Disposition Patient Disposition: Home Discharge Details Clinical Impression: Chest pain Primary Care Provider: Poppy Leblanc ED Provider: Lilibeth Stubbs Home Meds and New Rx's Prescriptions: Continued lisinopril 20 mg tablet 20 mg PO DAILY Qty: 90 3RF Discharge Instructions Instructions: Chest Pain (ED) Additional Instructions: Please follow-up with your primary care physician You need an outpatient stress test, I suggest that you follow-up with your doctor on Tuesday Please do not engage in any significant exertional activities until you are reassessed and have stress test Please return earlier should you have new or worsening complaints Referrals: Poppy Leblanc DO [Primary Care Provider] - Discharge Data Discharge Date/Time-TO BE ENTERED AT DEPARTURE: 10/01/22 19:15 Medical Decision Making <Davy Liriano NP - Last Filed: 10/02/22 08:10> Patient presenting to the emergency department for chief complaint of chest pain. Patient reports this morning while walking her dog she started having some chest pain that radiated into her neck and jaw. Pain is not as severe now as it was then but still having some discomfort. She states past medical history of hypertension controlled with lisinopril, elevated cholesterol, and that she does take hormone replacement due to menopausal symptoms. Patient denies all other symptoms. Physical exam is unremarkable and patient is well- appearing and nontoxic. Patient does state familial history of MIs with father having an DC in his 50s and mother also having cardiac history. We will plan on checking labs and EKG. Pending results we will give patient 324 of aspirin. Patient has a PERC score of 1 due to her hormone usage so we will perform D- dimer testing. Prior to obtaining troponins patient has heart score of 3. Please see physician interpretation for full interpretation of EKG but upon my review patient is in sinus bradycardia with no findings to suggest acute STEMI. <ANDREW Rhodes - Last Filed: 10/01/22 23:32> Patient presenting to the emergency department for chief complaint of chest pain. Patient reports this morning while walking her dog she started having some chest pain that radiated into her neck and jaw. Pain is not as severe now as it was then but still having some discomfort. She states past medical history of hypertension controlled with lisinopril, elevated cholesterol, and that she does take hormone replacement due to menopausal symptoms. Patient denies all other symptoms. Physical exam is unremarkable and patient is well- appearing and nontoxic. Patient does state familial history of MIs with father having an DC in his 50s and mother also having cardiac history. We will plan on checking labs and EKG. Pending results we will give patient 324 of aspirin. Patient has a PERC score of 1 due to her hormone usage so we will perform D- dimer testing. Prior to obtaining troponins patient has heart score of 3. Please see physician interpretation for full interpretation of EKG but upon my review patient is in sinus bradycardia with no findings to suggest acute STEMI. Care accepted and transition from Brody Liriano, nurse practitioner at 1600 pending repeat troponin and EKG Heart score of 3 We discussed admission, however patient at this time prefers to be discharged home, she is fully alert, oriented, of decisional capacity, she is aware that her story is concerning for cardiac etiology although she clinically appears well and her EKG and troponins are reassuring x2 She was observed for approximately 4 hours in the emergency department pain-free She is ordered an outpatient stress test for further evaluation and referred back to her primary care physician Discharge home pain-free with stable vitals Chest x-ray per radiology interpretation my review does not show evidence of acute abnormality HPI <Davy Liriano [employer]KER - Last Filed: 10/02/22 08:10> General Mode of arrival: ambulatory . Date/Time Provider Initiated Documentation: 10/01/22 15:08 . Limitations to Documentation: no limitations . Information obtained by: patient and RN notes reviewed . History of Present Illness 52 year old F presents to the emergency department with the chief complaint of Chest pain, Quality is described as aching and other (Pressure), and is localized to the chest. Patient neck. Patient started experiencing this hour(s) (6) and it has been constant. No relieving factors improve symptom(s), No exacerbating factors reported . Patient notes no other symptoms.. Patient did receive the following treatments prior to arrival, none Related Data Home Medications Medication Instructions Recorded Confirmed lisinopril 20 mg tablet 20 mg PO DAILY #90 tabs 09/28/22 10/01/22 Previous Rx's Medication Instructions Recorded lisinopril 20 mg tablet 20 mg PO DAILY #90 tabs 09/28/22 Allergies Allergy/AdvReac Type Severity Reaction Status Date / Time No Known Allergies Allergy Verified 01/20/22 15:25 General Stated Complaint: Chest Pain TUYET: 4 Review of Systems <Davy Liriano NP - Last Filed: 10/02/22 08:10> Constitutional Constitutional: Denies chills, Denies fever(s) and Denies malaise Cardiovascular Cardiovascular: Reports as per HPI, Reports chest pain, Denies chest pain with activity, Denies syncope, Denies irregular heart rhythm, Denies palpitations and Denies dyspnea Respiratory Respiratory: Denies cough, Denies hemoptysis and Denies dyspnea Gastrointestinal Gastrointestinal: Denies abdominal pain, Denies nausea and Denies vomiting Neurologic Neurologic: Denies syncope Psychiatric Psychiatric: Denies anxiety Endocrine Endocrine: Denies palpitations PFSH <Davy Liriano NP - Last Filed: 10/02/22 08:10> All Active Problems (Updated 10/01/22 @ 19:14 by ANDREW Rhodes) Chest pain (Acute) Postmenopausal (Acute) July 2020 Menopausal syndrome (hot flashes) (Acute) Primary insomnia (Acute) Essential hypertension (Acute ~07/2020) Pelvic floor weakness (Acute) Presumed 2' bearing children .. Hx frequency, incontinence (stress). [employer] training really brought frequency to light.. [ ] PT Health care maintenance (Acute) Nutritional deficiency, unspecified (Acute) Pure hypercholesterolemia, unspecified (Chronic) Familial? ASCVD Risk per ca.2% (10yr), no statin Tx ok. Medical History H/O abnormal cervical Papanicolaou smear s/p colposcopy Mononucleosis Wrist fracture, right Surgical History H/O lumpectomy Benign left breast Bx - 2008 History of delivery x2 2002, 2004 Normal colonoscopy (~01/2021) Family History Father Hypertension Throat cancer Mother Hypertension Alcohol abuse remission for 35 yrs Depression Sister Depression Hypertension Social History Smoking/Tobacco Use Status: Never Smoking risk assessment performed?: Yes Alcohol Intake: never Drug use: Occasionally Substance use type: marijuana Adopted: No Caregiver/Support person: No Foster care: No Household members: family Housing: house Number of Children: 2 Do you need help understanding health information?: Rarely Sexually active: Yes Do you think of yourself as: straight/heterosexual Current gender identity: female How often do you talk on the phone with friends or family?: three or more times per week Panel score (0-1 are the most socially isolated patients): 1 What type of physical activity do you participate in: walking, bicycling, other Details: rollerskating, hiking, running and yoga Frequency: daily Seatbelt use: always Drive intox or ride w/intox 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 Working smoke detector in home: Yes Fire extinguisher in home: Yes Carbon monox detector in home: Yes Do you feel safe at home: Yes Do you feel safe in your relationship?: Yes Female Reproductive History Menstrual Menopause type: natural (July 2020) History History 2 Para 2 Hx # Term Pregnancies Multiple births Hx # Pregnancies Ectopic pregnancies AB induced Hx Number of Living Children AB spontaneous Exam <Davy Liriano NP - Last Filed: 10/02/22 08:10> Const General: cooperative, healthy appearing, comfortable, no acute distress, not diaphoretic and not ill appearing Nutritional Appearance: average body habitus Orientation: alert, awake and oriented x3 Limitations: mental status not altered Neck Neck: normal visual inspection, full ROM, trachea midline, supple and no anterior neck swelling Thyroid: thyroid normal Carotids: normal carotid upstroke and no bruits Chest Chest: normal inspection of the chest Resp Effort & Inspection: normal respiratory effort and able to speak in complete sentences Auscultation: clear to auscultation bilaterally Cardio Jugular venous pressure: no JVD Palpation: normal PMI Rate: regular rate Rhythm: regular rhythm Heart Sounds: S1 normal, S2 normal, no click, no gallops, no murmurs and no rubs Bruits: no abdominal aortic bruits and no carotid bruits Pulses: radial pulses present bilaterally 2+ Skin General skin exam: no rashes or lesions noted Neuro General: patient alert, patient awake, patient oriented x3, tone normal and moves all extremities Sign Out <Davy Liriano NP - Last Filed: 10/02/22 08:10> Sign Out Data: Sign Out Comment: Patient signed out pending labs for chief complaint of chest pain. Patient in stable condition and received 324 of aspirin. Last updated by Davy Liriano NP at 10/01/22 15:30
[2022-10-01] MEDS: Aspirin 81 MG CHEW 324 MG CH (15:23)
[2022-10-01 15:43] LABS: Abs Immature Grans 0.01 10^3/uL (0.0-0.06); Absolute Basophil Count 0.06 10^3/uL (0.0-0.2); Absolute Eosinophil Count 0.25 10^3/uL (0.0-0.7); Absolute Lymphocyte Count 2.86 10^3/uL (1.2-3.4); Absolute Monocyte Count 0.72 10^3/uL (0.1-0.8); Absolute Neutrophil Count 3.71 10^3/uL (1.2-6.7); Basophils % 0.8; Eosinophils % 3.3; HCT 40.3 % (36.0-46.0); HGB 13.9 g/dL (11.2-15.7); Immature Grans % 0.1; Lymphocytes % 37.6; MCH 30.7 pg (27.0-33.0); MCHC 34.5 % (32.0-36.0); MCV 89 fL (80-95); MPV 9.5 fL (8.0-11.0); Monocytes % 9.5; Neutrophils % 48.7; Platelet Count 332 10^3/uL (130-400); RBC 4.53 10^6/uL (3.93-5.22); RDW 12.2 % (11.7-14.6); RDW-SD 39.5 fL; WBC 7.61 10^3/uL (4.4-10.8)
[2022-10-01 15:57] LABS: ALT 24 U/L (14-59); AST 18 U/L (15-37); Alkaline Phosphatase 53 U/L (46-116); Anion Gap 5.5 mmol/L (3-11); BUN 17 mg/dL (7-18); Bilirubin, Total 0.3 mg/dL (0.2-1.0); CO2 29.5 mmol/L (21.0-32.0); CREATININE 0.8 mg/dL (0.55-1.02); Calcium 9.2 mg/dL (8.5-10.1); Chloride 104 mmol/L (98-107); Glucose 88 mg/dL (74-106); Magnesium 2.1 mg/dL (1.8-2.4); Potassium 3.8 mmol/L (3.5-5.1); Sodium 139 mmol/L (136-145); Total Protein 7.8 g/dL (6.4-8.2); Troponin I < 50 ng/L (<or=60)
[2022-10-01 16:14] LABS: D-Dimer 225 ng/mlFEU (<500)
--- NOTE | 2022-10-01 16:30 | DI.RAD_ITS ---
Exam(s) XR CHEST 2V PA LATERAL EXAM: XR CHEST 2V PA LATERAL CLINICAL HISTORY: chest pain TECHNIQUE: 2D digital imaging was performed. COMPARISON: No exams were available for comparison FINDINGS: HEART: Normal size. Aorta: Not dilated. PULMONARY VASCULATURE: Normal. LUNGS: Clear. PLEURAL SPACE: No pleural effusion or pneumothorax. BONE:Unremarkable for age. IMPRESSION: No acute abnormality. DATA REPOSITORY: RADIATION DOSE DELIVERED:
--- NOTE | 2022-10-01 17:15 | RT.EKG_ITS ---
APPROVED REPORT Exam: Resting ECG Reason for Exam: chest pain Patient Location: E HR:54 bpm ECG Measurements Heart Rate 54 AXIS OK 189 P 37 QRSd 86 QRS 49 QT 432 T 30 QTc 411 Conclusion Sinus bradycardia...rate< 60 ST elev, probable normal early repol pattern...ST elevation, age<55
--- NOTE | 2022-10-01 17:19 | DI.VRAD_ITS ---
PROCEDURE INFORMATION: Exam: XR Chest Exam date and time: 10/01/2022 4:55 PM Age: 52 years old Clinical indication: Pain; Chest pressure TECHNIQUE: Imaging protocol: Radiologic exam of the chest. Views: 2 views. COMPARISON: CT upper extremity RT wo 01/29/2019 11:41 AM FINDINGS: Lungs: Unremarkable. No consolidation. Pleural spaces: Unremarkable. No pleural effusion. No pneumothorax. Heart/Mediastinum: Unremarkable. No cardiomegaly. Bones/joints: Unremarkable. IMPRESSION: No acute findings. Dictated and Authenticated by: Conrad Rosales MD. Ordering:SAUL Mcelroy MD
[2022-10-01 18:41] LABS: Troponin I < 50 ng/L (<or=60)
[2022-10-02 10:38] LABS: Lab Add On Test DONE
== END 2022-10-01 19:15 | disposition home or self-care (01) ==
PROVIDERS: Nurse Practitioner Family; Emergency Provider Physician Assistant; PCP Student in an Organized Health Care Education/Training Program
DX: E63.9 Nutritional deficiency, unspecified (principal); R07.9 Chest pain, unspecified; R89.9 Unspecified abnormal finding in specimens from other organs, systems and tissues; Z78.0 Asymptomatic menopausal state; I10 Essential (primary) hypertension; Z79.899 Other long term (current) drug therapy
CPT/HCPCS: 80053; 82306; 93005; 99284; 71046; 83735; 84484; 85025; 85379; 93010

== ENCOUNTER 2022-10-05 00:47 | Outpatient (CLI) | payer BC, SELFPAY ==
--- NOTE | 2022-10-05 06:05 | ETT_ITS ---
APPROVED REPORT Exam: Exercise Treadmill Patient Location: Out-Patient Room/Bed: Stress Nurse: Josy Grullon RN Ordering Provider:CANDELARIA LEOPOLDO, Contact Number: [phone] BMI: 23.77 Baseline Rhythm: Sinus Bradycardia Comment: 1 DHB Indications: evaluate for ischemia under stress, chest pain Medical History Medical History: HTN Cardiac Medications: Lisinopril Allergies: None known Cardiac Risk Factors: Family hx, HTN, pure hypercholesterolemia Previous Cardiac Procedures: None Pretest Chest Pain Characteristics: 07/02 pressure Exercise History: Physically active Physical Disabilities: None Lung Sounds: Clear to auscultation Heart Sounds: Regular Stress Test Details Test: Exercise stress testing was performed using a Damion protocol. Rest Stress HR Resting HR Supine: 57 bpm Max Heart Rate (APMHR): 168 bpm Resting HR Standin bpm Target HR (85% APMHR): 143 bpm Max HR Achieved: 169 bpm % of APMHR: 101 Recovery HR: 82 bpm HR response to stress: Normal HR response to stress BP Resting BP Supine: 170/95 mmHg Resting BP Standin/90 mmHg Max BP: 192/90 mmHg Recovery BP: 130/66 mmHg BP response to stress: Normal blood pressure response to stress. ECG Resting ECG: Sinus Bradycardia Ectopy: None Comment: 1 DH Stress ECG: Sinus Tachycardia ST Change: Horizontal ST depression, Downsloping ST depression Lead(s): inferior Stage: [address] Deviation: 1-3 mm Arrhythmia: Occasional PVC's Recovery ECG: Sinus Rhythm Recovery ST Change: No significant ST segment changes noted Recovery Arrhythmia: Frequent PVC's Comment: ST changes became upsloping in last stage of exercise and returned to baseline in recovery Clinical Reason for Termination: Target HR Achieved, Fatigue Stress Symptoms: Dyspnea, General Fatigue Exercise duration: 14 min24 sec Highest Stage Reached: Stage 5: 5.0 mph at 18% grade. Exercise capacity: 14.86 METs Angina Score: None Ceja Treadmill Score: 12.0 Rate Pressure Product: 46331 Stress ECG Conclusion 1. Resting electrocardiogram showed voltage for left ventricular hypertrophy 2. Patient exercised on the Damion protocol and completed a workload of 14.86 METS, above average exer cise capacity, no symptoms concerning for angina 3. Normal heart rate and blood pressure response to exercise. The patient achieved 100% of predicted heart rate for age 4. There was no electrocardiographic evidence of myocardial ischemia 5. Sporadic PVCs were noted Ceja Treadmill Score is 12.0 which is Low risk. Stress Test Summary STAGE Time (mins) Speed (mph) Grade (%) HR BP SpO2 SYMPTOMS METS Supine 57 170/95 98 2/10 chest pressure Standing 57 152/90 98 2/10 chest pressure 1 3 1.7 10 92 160/70 97 4.5 2 6 2.5 12 108 168/70 96 7 3 9 3.4 14 138 192/80 10 4 12 4.2 16 148 13 5 15 5.0 18 167 15
== END 2022-10-05 01:07 ==
LOC: DI 00:50
PROVIDERS: PCP Student in an Organized Health Care Education/Training Program; Visit Provider Student in an Organized Health Care Education/Training Program
DX: R07.9 Chest pain, unspecified (principal); Z78.0 Asymptomatic menopausal state; Z82.49 Family history of ischemic heart disease and other diseases of the circulatory system
CPT/HCPCS: 93017

== ENCOUNTER 2022-10-08 16:56 | Outpatient (CLI) | payer BC, SELFPAY ==
[2022-10-08 17:31] LABS: Magnesium 2.2 mg/dL (1.8-2.4)
== END 2022-10-08 16:57 | disposition home or self-care (01) ==
LOC: LBO 16:57
PROVIDERS: PCP Student in an Organized Health Care Education/Training Program; Visit Provider Nurse Practitioner Family
DX: R00.2 Palpitations (principal); I10 Essential (primary) hypertension
CPT/HCPCS: 36415; 83735; 84443

== ENCOUNTER 2022-10-29 08:34 | Outpatient (RCR) | payer BC, SELFPAY ==
--- NOTE | 2022-10-29 08:37 | HOLTER_ITS ---
APPROVED REPORT Conclusion This is a 48-hour Holter monitor ordered for palpitations Rhythm throughout is sinus with an average heart rate of 70. Minimum was 48, maximum 135 A total of 9 isolated premature ventricular contractions were seen There were a total of 10 isolated atrial premature beats There was no atrial fibrillation, no SVT, no high-grade AV block, no pauses greater than 3 seconds
== END 2022-11-19 23:59 | disposition home or self-care (01) ==
LOC: CARDOPNVT 08:34
PROVIDERS: PCP Student in an Organized Health Care Education/Training Program; Visit Provider Nurse Practitioner Family
DX: R00.2 Palpitations (principal); I49.1 Atrial premature depolarization
CPT/HCPCS: 93225; 93226

== ENCOUNTER 2023-02-04 11:44 | Outpatient (CLI) | payer BC, SELFPAY ==
[2023-02-04 08:24] LABS: Anion Gap 4.9 mmol/L (3-11); BUN 14 mg/dL (7-18); CO2 31.1 mmol/L (21.0-32.0); CREATININE 0.7 mg/dL (0.55-1.02); Calcium 9.3 mg/dL (8.5-10.1); Calculated LDL 149 mg/dL (<100); Chloride 106 mmol/L (98-107); Cholesterol 234 mg/dL (<200); Estimated GFR 103.35 (mL/min/1.73m2); Glucose 100 mg/dL (74-106); HDL Cholesterol 77 mg/dL (40-60); Sodium 142 mmol/L (136-145); Triglyceride 41 mg/dL (<150)
[2023-02-04 08:35] LABS: C-Reactive Protein 0.16 mg/dL (0.0-0.3)
[2023-02-04 08:46] LABS: Vitamin D 25 Total 42.2 ng/mL (30-100)
[2023-02-04 19:43] LABS: Estradiol 23 pg/mL (See Note); Progesterone 32.3 ng/mL (See Table)
[2023-02-07 08:53] LABS: DHEA Sulfate 111 ug/dL (56-283)
[2023-02-07 11:59] LABS: Apolipoprotein B, S 91 mg/dL; Lipoprotein (a) 52 nmol/L (<75)
[2023-02-07 16:23] LABS: Apolipoprotein A1 154 mg/dL (>=140)
[2023-02-10 17:19] LABS: Dehydroepiandrosterone (DHEA) 2.6 ng/mL (<6.0)
== END 2023-02-04 11:45 | disposition home or self-care (01) ==
LOC: LBO 11:45
PROVIDERS: PCP Student in an Organized Health Care Education/Training Program; Visit Provider Naturopath
DX: I10 Essential (primary) hypertension (principal); N95.1 Menopausal and female climacteric states; E78.00 Pure hypercholesterolemia, unspecified; F51.01 Primary insomnia; E63.9 Nutritional deficiency, unspecified; R42 Dizziness and giddiness; D50.9 Iron deficiency anemia, unspecified; E55.9 Vitamin D deficiency, unspecified; R53.83 Other fatigue; Z13.220 Encounter for screening for lipoid disorders
CPT/HCPCS: 36415; 80048; 80061; 82172; 82306; 82627; 83695; 86900; 86901; 82626; 82670; 84144; 86140

== ENCOUNTER 2024-01-13 00:42 | Outpatient (CLI) | payer BC, SELFPAY ==
--- OUTSIDE RECORDS SUMMARY | 2024-01-13 00:50 | XMS_ITS | Encounter Summary ---
Author Organization [facility] Address [address] [place] [address] Care Team Providers Care Nutrition Services Manager Name Role Phone Aung Vega MD Primary Care Provider Encounter Details Date Type Department Care Team (Late st Contact Info) Description 12/25/2021 Lab Requisition [facility] Pathology & Laboratory Medicine - [facility] [address], [place] [id number] Outr Resulting Lab, Provider Social History Tobacco Use Types Packs/Day Years Used Date Smoking Tobacco: Never Assessed Sex and Gender Information Value Date Recorded Sex Assigned at Not on file Gender Identity Not on file Sexual Orientation Not on file documented as of this encounter Plan of Treatment Not on file documented as of this encounter Procedures Procedure Name Priority Date/Time Associated Diagnosis Comments PROGESTERONE Routine 12/25/2021 7:40 EDT DHEA SULFATE Routine 12/25/2021 7:40 EDT documented in this encounter Results * PROGESTERONE (12/25/2021 7:40 EDT) Progesterone 2.9 See Table ng/mL 12/25/2021 18:00 EDT [facility] Comment: Female Reference Ranges: PHYSIOLOGICAL STATUS ?EXPECTED RANGE ? >= 18 Yrs Menstruating: (Non-) Follicular Phase: ? <= 1.4 ng/mL Luteal Phase: ? 3.3 - 25.6 ng/mL Mid-luteal Phase: ? 4.4 - 28.0 ng/mL Postmenopausal: ? <= 0.7 ng/mL : -------- First Trimester: ?11.2 - 90.0 ng/mL Second Trimester: ? 25.6 - 89.4 ng/mL Third Trimester: ?48.4 - 422.5ng/mL For ectopic , consult a pathologist Reference Ranges for female patients <18 years old have not been established. Blood VENOUS BLOOD / Unknown 12/25/2021 7:40 EDT 12/25/2021 17:15 EDT Provider Outr Resulting Lab CHEMISTRY & BLOOD GAS ORDERABLES Performing Organization Address [facility] Co de Phone Number [facility] [address] [place] [address] * DHEA SULFATE (12/25/2021 7:40 EDT) DHEA Sulfate 98 56 - 283 ug/dL 12/28/2021 9:43 EDT [facility] Blood VENOUS BLOOD / Unknown 12/25/2021 7:40 EDT 12/25/2021 17:15 EDT Provider Outr Resulting Lab CHEMISTRY & BLOOD GAS ORDERABLES Performing Organization Address [facility] de Phone Number [facility] [address] [place] [address] documented in this encounter Visit Diagnoses Not on filedocumented in this encounter Care Teams Nutrition Services Manager Relationship Specialty Start Date End Date Aung Vega MD [address] [place] [id number] PCP - General 10/11/08 documented as of this encounter
--- OUTSIDE RECORDS SUMMARY | 2024-01-13 00:50 | XMS_ITS | Encounter Summary ---
Author Organization [facility] Address [address] [place] [address] Care Team Providers Care Designer Writer Name Role Phone Unavailable Primary Care Provider Unavailabl e Encounter Details Date Type Department Care Team (Late st Contact Info) Description 10/08/2008 Orders Only [facility] Laboratory Services - [facility] [place] [address], [place] [id number] [facility] [address] [place], [place] [phone] Social History Tobacco Use Types Packs/Day Years Used Date Smoking Tobacco: Never Assessed Sex and Gender Information Value Date Recorded Sex Assigned at Not on file Gender Identity Not on file Sexual Orientation Not on file documented as of this encounter Plan of Treatment Not on file documented as of this encounter Procedures Procedure Name Priority Date/Time Associated Diagnosis Comments SURGICAL PATHOLOGY Routine 10/08/2008 0:00 EDT documented in this encounter Results * SURGICAL PATHOLOGY (10/08/2008 0:00 EDT) Pathology Report: SURGICAL PATHOLOGY REPORT ? Reports generated via electronic interface contain original data; ? however they are lacking the format of the original report. ? Caution should be taken when reading/interpreti ng unformatted reports. ? Name: ? ALANIZ, JULEE D ? Accession #: ? [id number] ? : ? 1970 (Age: 38) ??F ? Collect Date: ? 10/08/2008 ? Location: ? [facility] ? Receive Date: ? 10/08/2008 ? Provider: FLORI MECH MD ? Copy to: C JOURDAN LOVE MD ? CLAUDETTE MICHELINE SCALLOP CUTTER MACHINE ? Final Pathologic Diagnosis: ? Breast, left, excisional biopsy ([facility] [id number]; 10/03/08): ? 1. 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 ??See ?? comment. ? 2. ? Lesion is circumscribed and abuts tissue edges. ? Comment: ? Thank you for the opportunity to review this case in consultation. ??We ? concur with your description of the lesion and believe that this can be ? classified as a complex fibroadenoma. ??It is circumscribed and has the stromal ?? changes typical of a fibroadenoma. ??Some of the glands also have the ? architecture of a fibroadenoma. ??However, a large part of the fibroadenoma has ?? been replaced by fibrocystic changes, including apocrine metaplasia, cystic ? dilatation of the duct spaces, and sclerosing adenosis. ??Fibroadenomas with ? sclerosing adenosis have been classified as complex fibroadenomas. ??Complex ? fibroadenomas have been associated with a minimal increased risk for breast ? cancer that is approximately two times normal and similar to what one would ? expect with sclerosing adenosis in the breast outside of a fibroadenoma. ??( ?? Kian)/linda ? Document reviewed and electronically signed by: ? Ramiro Langston MD ? Report ??Date: 10/10/2008 15:38 ? By the signature above, the attending physician certifies that he/she has ? personally conducted a gross and/or microscopic examination of the described ? specimens and rendered or confirmed the above diagnosis. ? Specimen(s) Received: ? [facility] [id number] (2) ? Clinical History: ? Lt breast mass ? Gross Description: ? Two slides are received for review from [facility], one each labelled [id number], [id number] 2. ? End of Report ? [facility] 10/08/2008 10/08/2008 14: 42 EDT Flori Logan MD PATHOLOGY ORDERABLES [facility] [address] [place] [address] documented in this encounter Visit Diagnoses Not on filedocumented in this encounter
--- OUTSIDE RECORDS SUMMARY | 2024-01-13 00:50 | XMS_ITS | Encounter Summary ---
Author Organization [facility] Address [address] [place] [address] Care Team Providers Care Furnace Helper Name Role Phone Aung Vega MD Primary Care Provider [phone] Encounter Details Date Type Department Care Team (Late st Contact Info) Description 02/04/2023 Lab Requisition [facility] Pathology & Laboratory Medicine - [facility] [address] [place] [address] Outr Resulting Lab, Provider Social History Tobacco [...] Priority Date/Time Associated Diagnosis Comments PROGESTERONE Routine 02/04/2023 7:45 EDT DHEA SULFATE Routine 02/04/2023 7:45 EDT ESTRADIOL, ADULTS Routine 02/04/2023 7:45 EDT documented in this encounter Results * PROGESTERONE (02/04/2023 7:45 EDT) Progesterone 32.3 See Table ng/mL 02/04/2023 19:38 EDT [facility] Comment: Female Reference Ranges: PHYSIOLOGICAL STATUS ?REFERENCE RANGE ? Pre-Pubertal: ? <= 0.2 ng/mL Menstruating: (Non-) Follicular Phase: ? <= 1.4 ng/mL Luteal Phase: ? 3.3 - 25.6 ng/mL Mid-luteal Phase: ? 4.4 - 28.0 ng/mL Postmenopausal: ? <= 0.7 ng/mL : -------- First Trimester: ?11.2 - 90.0 ng/mL Second Trimester: ? 25.6 - 89.4 ng/mL Third Trimester: ?48.4 - 422.5ng/mL For ectopic , consult a pathologist. Blood VENOUS BLOOD / Unknown 02/04/2023 7:45 EDT 02/04/2023 17:37 EDT Provider Outr Resulting Lab CHEMISTRY & BLOOD GAS ORDERABLES [facility] [address] [place] [address] * ESTRADIOL, ADULTS (02/04/2023 7:45 EDT) Estradiol 23 See Note pg/mL 02/04/2023 19:38 EDT [facility] Comment: NOTE: FEMALE REFERENCE RANGES: MENSTRUATING ? By cycle day relative to LH peak Follicular ?(-12 to -4 days) ??20-144 pg/mL Midcycle ?(-3 to +2 days) ?? 64-357 pg/mL Luteal ?(+4 t0 +12 days) ??56-214 pg/mL POSTMENOPAUSAL ?<32 pg/mL *Cross reactivity with Fulvestrant could lead to a falsely elevated estradiol result in patients treated with this drug. Blood VENOUS BLOOD / Unknown 02/04/2023 7:45 EDT 02/04/2023 17:37 EDT Provider Outr Resulting Lab CHEMISTRY & BLOOD GAS ORDERABLES Performing Organization Address City/[facility]/ZIP Co de Phone Number [facility] [address] [place] [address] * DHEA SULFATE (02/04/2023 7:45 EDT) DHEA Sulfate 111 56 - 283 ug/dL 02/07/2023 8:48 EDT [facility] Blood VENOUS BLOOD / Unknown 02/04/2023 7:45 EDT 02/04/2023 17:37 EDT Provider Outr Resulting Lab CHEMISTRY & BLOOD GAS ORDERABLES Performing Organization Address City/[facility] Co de Phone Number [facility] [address] [place] [address] documented in this encounter Visit Diagnoses Not on filedocumented in this encounter Care Teams Furnace Helper Relationship Specialty Start Date End Date Aung Vega MD [address] [place] [address] PCP - General 10/11/08 documented as of this encounter
--- OUTSIDE RECORDS SUMMARY | 2024-01-13 00:50 | XMS_ITS | Encounter Summary ---
Author Organization [facility] Address [address] [place] [address] Care Team Providers Care Tile Layer Helper Name Role Phone Aung Vega MD Primary Care Provider Encounter Details Date Type Department Care Team (Late st Contact Info) Description 04/27/2016 Results Only [facility] [phone] Lincoln Germain, SNUFF GRINDER AND SCREENER [address] [phone] Social History Tobacco Use Types Packs/Day Years Used Date Smoking Tobacco: Never Assessed Sex and Gender Information Value Date Recorded Sex Assigned at Not on file Gender Identity Not on file Sexual Orientation Not on file documented as of this encounter Plan of Treatment Not on file documented as of this encounter Procedures Procedure Name Priority Date/Time Associated Diagnosis Comments PAP TEST- RESULT ONLY Routine 04/27/2016 0:00 EST documented in this encounter Results * PAP TEST- RESULT ONLY (04/27/2016 0:00 EST) Pathology Report: CYTOPATHOLOGY REPORT Reports generated via electronic interface contain original data; however they are lacking the format of the original report. Caution should be taken when reading/interpreti ng unformatted reports. Name: ? JULEE ALANIZ ? Accession #: ? [id number] ? : ? 1970 (Age: 46) ??F ?Collect Date: ? 04/27/2016 ? Location: ? [facility] ? Receive Date: ? 04/28/2016 ? Provider: LINCOLN GERMAIN PARCEL POST DELIVERY Copy to: ? Final Report SPECIMEN ADEQUACY ? Satisfactory for Evaluation - transformation zone component present GENERAL CATEGORIZATION ? Negative for Intraepithelial Lesion or Malignancy ?? Last Menstrual Period: 04/04/16 Specimen/Source: ??Pap Test, Cervix/Endocervix, ThinPrep Imaging System with manual evaluation Document reviewed and electronically signed by: ? LIZZIE Erickson(ASCP) ? Report ??Date: 04/30/2016 16:19 HPV with Pap Test ? Date Ordered: ? 04/30/2016 ? Status: ?? Signed Out ?Date Complete: ? 05/06/2016 ? By: ??System Interface ? Date Reported: ? 05/06/2016 ? Interpretation RESULT: Negative for HPV. No E6 or E7 mRNA is detected from HPV types 16,18,31,33,35, 39,45,51,52,56,58, 59,66, and 68 by director of application development mediated amplification. Comments Document reviewed and electronically signed by: ? System Interface ? Report date: 05/06/2016 By the signature above, the attending physician certifies that he/she has personally conducted a gross and/or microscopic examination of the described specimens and rendered or confirmed the above diagnosis. End of Report [facility] 04/27/2016 04/28/2016 Lincoln Germain SNUFF GRINDER AND SCREENER PATHOLOGY ORDERABL ES [facility] [address] [place] [address] documented in this encounter Visit Diagnoses Not on filedocumented in this encounter Care Teams Tile Layer Helper Relationship Specialty Start Date End Date Aung Vega MD [address] [place] [phone] PCP - General 10/11/08 documented as of this encounter
--- OUTSIDE RECORDS SUMMARY | 2024-01-13 00:50 | XMS_ITS | Encounter Summary ---
Author Organization [facility] Address [address] [place] [address] Care Team Providers Care Rubber Compounder Formulator Name Role Phone Unavailable Primary Care Provider Unavailabl e Encounter Details Date Type Department Care Team (Late st Contact Info) Description 07/26/2002 8:25 EST Hospital Encounter [facility] - Other [address] [place] [address] Aung Bales MD [address] [place] [phone] Unknown, Provider, Social History Tobacco Use Types Packs/Day Years Used Date Smoking Tobacco: Never Assessed Sex and Gender Information Value Date Recorded Sex Assigned at Not on file Gender Identity Not on file Sexual Orientation Not on file documented as of this encounter Plan of Treatment Not on file documented as of this encounter Procedures Procedure Name Priority Date/Time Associated Diagnosis Comments CYTOPATHOLOGY Routine 07/26/2002 0:00 EST documented in this encounter Results * CYTOPATHOLOGY (07/26/2002 0:00 EST) Pathology Report: CYTOPATHOLOGY REPORT Reports generated via electronic interface contain original data; however they are lacking the format of the original report. Caution should be taken when reading/interpreti ng unformatted reports. Name: ? JULEE ALANIZ ? Accession #: ? [id number] : ? 1970 (Age: 32) ??F ?Collect Date: ? 07/26/2002 Location: ? [facility] ? Receive Date: ? 07/31/2002 Provider: ?AUNG BALES MD Copy to: ? Specimen/Source: ?ThinPrep Pap Test, Cervix Last Menstrual Period: ? Menstrual/Pregnanc y Status: ? Post : 8-9 weeks Other: ? HPVA - HPV testing requested if ASC-US on the current ThinPrep Pap test. ? SPECIMEN ADEQUACY ? Satisfactory for Evaluation - transformation zone component present GENERAL CATEGORIZATION ? Negative for Intraepithelial Lesion or Malignancy ? Document reviewed and electronically signed by: ? Tasia Aguilera, SCT(ASCP) ? Report Date: ??08/01/2002 13:04 End of Report [facility] 07/26/2002 07/31/2002 Aung Bales MD PATHOLOGY ORDERABLE S [facility] [address] [place] [address] documented in this encounter Visit Diagnoses Not on filedocumented in this encounter
--- OUTSIDE RECORDS SUMMARY | 2024-01-13 00:50 | XMS_ITS | Referral Summary ---
Author Organization [facility] Address [address] [place] [address] Care Team Providers Care Post Anesthesia Room Nurse Name Role Phone Aung Vega MD Primary Care Provider Social History Tobacco Use Types Packs/Day Years Used Date Smoking Tobacco: Never Assessed Sex and Gender Information Value Date Recorded Sex Assigned at Not on file Gender Identity Not on file Sexual Orientation Not on file Plan of Treatment Not on file Care Teams Post Anesthesia Room Nurse Relationship Specialty Start Date End Date Aung Vega MD [address] [place] [phone] PCP - General 10/11/08
--- OUTSIDE RECORDS SUMMARY | 2024-01-13 00:50 | XMS_ITS | Encounter Summary ---
Author Organization [facility] Address [address] [place] [address] Care Team Providers Care Associate Professor Of Medicine Name Role Phone Aung Vega MD Primary Care Provider Encounter Details Date Type Department Care Team (Late st Contact Info) Description 12/21/2019 Lab Requisition [facility] Pathology & Laboratory Medicine - [facility] [address] [place], [place] [address] Outr Resulting Lab, Provider Social History Tobacco [...] Priority Date/Time Associated Diagnosis Comments PROGESTERONE Routine 12/21/2019 9:02 EDT ESTRADIOL, ADULTS Routine 12/21/2019 9:02 EDT PROTEIN C ACTIVITY Routine 12/21/2019 9:02 EDT T3 FREE Routine 12/21/2019 9:02 EDT documented in this encounter Results * T3 FREE (12/21/2019 9:02 EDT) T3, Free 3.9 2.8 - 5.3 pg/mL 12/21/2019 17:18 EDT [facility] Blood VENOUS BLOOD / Unknown 12/21/2019 9:02 EDT 12/21/2019 16:05 EDT Provider Outr Resulting Lab CHEMISTRY & BLOOD GAS ORDERABLES Performing Organization Address [facility]/ZIP Co de Phone Number [facility] [address] [place] [address] * PROTEIN C ACTIVITY (12/21/2019 9:02 EDT) Protein C Clot 100 71 - 199 % 12/26/2019 12:39 EDT [facility] Comment: a. Acquired Protein C deficiencies are associated with vitamin K antagonists, acute thrombotic events, vitamin K deficiency, liver disease and DIC. b. Results may be affected by plasma heparin levels greater than 1.5 U/mL for UFH and 0.8 for LMWH. c. Results may be overestimated in the presence of direct Xa inhibitors (rivaroxaban, apixaban, edoxaban) and direct thrombin inhibitors (dabigatran, argatroban, bivalirudin). d. Acute illness and/or thrombosis may influence test results in an unpredictable manner; therefore, results should be interpreted with caution in this setting. Blood VENOUS BLOOD / Unknown 12/21/2019 9:02 EDT 12/21/2019 16:10 EDT Provider Outr Resulting Lab HEMATOLOGY & PF4 ORDERABLES Performing Organization Address [facility] Co de Phone Number [facility] [address] [place] [address] * PROGESTERONE (12/21/2019 9:02 EDT) Progesterone 0.7 See Table ng/mL 12/21/2019 17:27 EDT [facility] Comment: Female Reference Ranges: PHYSIOLOGICAL [...] been established. Blood VENOUS BLOOD / Unknown 12/21/2019 9:02 EDT 12/21/2019 16:05 EDT Provider Outr Resulting Lab CHEMISTRY & BLOOD GAS ORDERABLES [facility] [address] [place] [address] * ESTRADIOL, ADULTS (12/21/2019 9:02 EDT) Estradiol 213 See Note pg/mL 12/21/2019 17:27 EDT [facility] Comment: NOTE: FEMALE REFERENCE RANGES: MENSTRUATING ? By cycle day relative to LH peak Follicular ?(-12 to -4 days) ??20-144 pg/mL Midcycle ?(-3 to +2 days) ?? 64-357 pg/mL Luteal ?(+4 t0 +12 days) ??56-214 pg/mL POSTMENOPAUSAL ?<33 pg/mL *Cross reactivity with Fulvestrant could lead to a falsely elevated estradiol result in patients treated with this drug. Blood VENOUS BLOOD / Unknown 12/21/2019 9:02 EDT 12/21/2019 16:05 EDT Provider Outr Resulting Lab CHEMISTRY & BLOOD GAS ORDERABLES [facility] [address] [place] [address] documented in this encounter Visit Diagnoses Not on filedocumented in this encounter Care Teams Associate Professor Of Medicine Relationship Specialty Start Date End Date Aung Vega MD [address] [place] [phone] PCP - General 10/11/08 documented as of this encounter
--- OUTSIDE RECORDS SUMMARY | 2024-01-13 00:50 | XMS_ITS | Encounter Summary ---
Author Organization [facility] Address [address] [place] [address] Care Team Providers Care Corn Grower Name Role Phone Unavailable Primary Care Provider Unavailabl e Encounter Details Date Type Department Care Team (Latest Contact Info) Description 04/04/2002 13:31 EST Hospital Encounter [facility] [address] [place] [address] Aung Vega MD [address] [place] [phone] Discharge Disposition: Auto Discharge Social History Tobacco Use Types Packs/Day Years Used Date Smoking Tobacco: Never Assessed Sex and Gender Information Value Date Recorded Sex Assigned at Not on file Gender Identity Not on file Sexual Orientation Not on file documented as of this encounter Discharge Disposition Disposition Code Departure Means Destination Auto Discharge documented in this encounter Plan of Treatment Not on file documented as of this encounter Visit Diagnoses Not on filedocumented in this encounter
--- OUTSIDE RECORDS SUMMARY | 2024-01-13 00:50 | XMS_ITS | Encounter Summary ---
Author Organization [facility] Address [address] [place] [address] Care Team Providers Care Amusement Equipment Operator Name Role Phone Aung Vega MD Primary Care Provider Encounter Details Date Type Department Care Team (Late st Contact Info) Description 11/11/2011 Results Only [facility] Laboratory Services - [facility] [address] [place], [place] [address] Claudette Collins FNP [address] [place], [place] [phone] Social History Tobacco Use Types Packs/Day Years [...] Diagnosis Comments PAP TEST- RESULT ONLY Routine 11/11/2011 0:00 EDT documented in this encounter Results * PAP TEST- RESULT ONLY (11/11/2011 0:00 EDT) Pathology Report: CYTOPATHOLOGY REPORT Reports generated via electronic interface contain original data; however they are lacking the format of the original report. Caution should be taken when reading/interpreti ng unformatted reports. Name: ? JULEE ALANIZ ? Accession #: ? [id number] ? : ? 1970 (Age: 41) ??F ?Collect Date: ? 11/11/2011 ? Location: ? [facility] ? Receive Date: ? 11/15/2011 ? Provider: CLAUDETTE HUSSEIN Copy to: ? Final Report SPECIMEN ADEQUACY ? Satisfactory for Evaluation - transformation zone component present GENERAL CATEGORIZATION ? Negative for Intraepithelial Lesion or Malignancy ?? Specimen/Source: ??Pap Test, Endocervix, ThinPrep Imaging System with manual evaluation Document reviewed and electronically signed by: ? Jens Roberts, CT(ASCP) ? Report ??Date: 11/16/2011 12:38 HPV with Pap Test ? Date Ordered: ? 11/16/2011 ? Status: ?? Signed Out ?Date Complete: ? 11/18/2011 ? By: ??System Interface ? Date Reported: ? 11/18/2011 ? Interpretation RESULT: Negative for HPV. No E6 or E7 mRNA is detected from HPV types 16,18,31,33,35, 39,45,51,52,56,58, 59,66, and 68 by aeronautics teacher mediated amplification. Comments Document reviewed and electronically signed by: ? System Interface ? Report date: 11/18/2011 By the signature above, the attending physician certifies that he/she has personally conducted a gross and/or microscopic examination of the described specimens and rendered or confirmed the above diagnosis. End of Report [facility] 11/11/2011 11/15/2011 Claudette Collins [facility] PATHOLOGY ORDERAB LES [facility] [address] [place] [address] documented in this encounter Visit Diagnoses Not on filedocumented in this encounter Care Teams Amusement Equipment Operator Relationship Specialty Start Date End Date Aung Vega MD [address] [place] [phone] PCP - General 10/11/08 documented as of this encounter
--- OUTSIDE RECORDS SUMMARY | 2024-01-13 00:50 | XMS_ITS | Encounter Summary ---
Author Organization [facility] Address [address] [place] [address] Care Team Providers Care Hole Digger Name Role Phone Aung Bales MD Primary Care Provider Encounter Details Date Type Department Care Team (Late st Contact Info) Description 10/11/2005 Results Only [facility] [address] [place] [address] Aung Bales MD [address] [place] [address] Social History Tobacco Use Types Packs/Day Years Used Date Smoking Tobacco: Never Assessed Sex and Gender Information Value Date Recorded Sex Assigned at Not on file Gender Identity Not on file Sexual Orientation Not on file documented as of this encounter Plan of Treatment Not on file documented as of this encounter Procedures Procedure Name Priority Date/Time Associated Diagnosis Comments CYTOPATHOLOGY Routine 10/11/2005 0:00 EDT documented in this encounter Results * CYTOPATHOLOGY (10/11/2005 0:00 EDT) Pathology Report: CYTOPATHOLOGY REPORT Reports generated via electronic interface contain original data; however they are lacking the format of the original report. Caution should be taken when reading/interpreti ng unformatted reports. Name: ? JULEE ALANIZ ? Accession #: ? [id number] : ? 1970 (Age: 35) ??F ?Collect Date: ? 10/11/2005 Location: ? [facility] ? Receive Date: ? 10/13/2005 Provider: ?AUNG BALES MD Copy to: ? Specimen/Source: ?ThinPrep Pap Test, Cervix, processed on [employer] ThinPrep Imaging System, with manual evaluation Last Menstrual Period: ? 10/03/05 Other: ? Additional clinical information: G2 HPVA - HPV testing requested if ASC-US on the current ThinPrep Pap test. ? SPECIMEN ADEQUACY ? Satisfactory for Evaluation - transformation zone component present GENERAL CATEGORIZATION ? Negative for Intraepithelial Lesion or Malignancy INTERPRETATION ? Reactive cellular changes associated with inflammation present (includes repair). ? Document reviewed and electronically signed by: ? DARWIN BERMAN MD ? Report Date: ??10/15/2005 15:37 End of Report [facility] 10/11/2005 10/13/2005 Aung Bales MD PATHOLOGY ORDERABLE S Performing Organization Address City/State/[facility] Co de Phone Number [facility] [address] [place] [address] documented in this encounter Visit Diagnoses Not on filedocumented in this encounter Care Teams Hole Digger Relationship Specialty Start Date End Date Aung Bales MD [address] [place] [phone] PCP - General 10/11/08 documented as of this encounter
--- OUTSIDE RECORDS SUMMARY | 2024-01-13 00:50 | XMS_ITS | Clinical Summary ---
Author Organization [facility] Address [address] [place] [address] Care Team Providers Care Equities Analyst Name Role Phone Aung Vega MD Primary Care Provider Social History Tobacco Use Types Packs/Day Years Used Date Smoking Tobacco: Never Assessed Sex and Gender Information Value Date Recorded Sex Assigned at Not on file Gender Identity Not on file Sexual Orientation Not on file Plan of Treatment Health Maintenance Due Date Last Done Comments Hepatitis C Screen 1970 Hepatitis B Vaccine (1 of 3 - 19+ 3-dose series) 01/18 COVID-19 Vaccine (2022- season) 2023 Care Teams Equities Analyst Relationship Specialty Start Date End Date Aung Vega MD [address] [place] [phone] PCP - General 10/11/08
--- OUTSIDE RECORDS SUMMARY | 2024-01-13 00:50 | XMS_ITS | Encounter Summary ---
Author Organization [facility] Address [address] [place] [address] Care Team Providers Care Dimmer Board Operator Name Role Phone Aung Vega MD Primary Care Provider [phone] Encounter Details Date Type Department Care Team (Late st Contact Info) Description 11/02/2006 Results Only [facility] - Maple conversion [address] [place] [address] Magalis Muñoz MD [address] [place] [address] Social History Tobacco Use Types Packs/Day Years Used Date Smoking Tobacco: Never Assessed Sex and Gender Information Value Date Recorded Sex Assigned at Not on file Gender Identity Not on file Sexual Orientation Not on file documented as of this encounter Plan of Treatment Not on file documented as of this encounter Procedures Procedure Name Priority Date/Time Associated Diagnosis Comments CYTOPATHOLOGY Routine 11/02/2006 0:00 EDT documented in this encounter Results * CYTOPATHOLOGY (11/02/2006 0:00 EDT) Pathology Report: CYTOPATHOLOGY REPORT Reports generated via electronic interface contain original data; however they are lacking the format of the original report. Caution should be taken when reading/interpreti ng unformatted reports. Name: ? JULEE ALANIZ ? Accession #: ? [id number] : ? 1970 (Age: 36) ??F ?Collect Date: ? 11/02/2006 Location: ? [facility] ? Receive Date: ? 11/04/2006 Provider: ?MAGALIS MUÑOZ MD Copy to: ? Specimen/Source: ?ThinPrep Pap Test, Cervix, processed on [employer] ThinPrep Imaging System, with manual evaluation Last Menstrual Period: ? Other: ? HPVA - HPV testing requested if ASC-US on the current ThinPrep Pap test. ? SPECIMEN ADEQUACY ? Satisfactory for Evaluation - transformation zone component present GENERAL CATEGORIZATION ? Negative for Intraepithelial Lesion or Malignancy ? Document reviewed and electronically signed by: ? Jens Roberts, LIZZIE(ASCP) ? Report Date: ??11/10/2006 09:17 End of Report [facility] 11/02/2006 11/04/2006 Magalis Muñoz MD PATHOLOGY ORDERABLES [facility] [address] [place] [address] documented in this encounter Visit Diagnoses Not on filedocumented in this encounter Care Teams Dimmer Board Operator Relationship Specialty Start Date End Date Aung Vega MD [address] [place] [address] PCP - General 10/11/08 documented as of this encounter
--- OUTSIDE RECORDS SUMMARY | 2024-01-13 00:50 | XMS_ITS | Encounter Summary ---
Author Organization [facility] Address [address] [place] [address] Care Team Providers Care Try On Baster Name Role Phone Aung Vega MD Primary Care Provider Encounter Details Date Type Department Care Team (Late st Contact Info) Description 12/19/2019 Lab Requisition [facility] Pathology & Laboratory Medicine - [facility] [address] [place] [address] Josy Randolph, [facility] [address] [place] [phone] Encounter for other general examination Social History Tobacco Use Types Packs/Day Years Used Date Smoking Tobacco: Never Assessed Sex and Gender Information Value Date Recorded Sex Assigned at Not on file Gender Identity Not on file Sexual Orientation Not on file documented as of this encounter Plan of Treatment Not on file documented as of this encounter Procedures Procedure Name Priority Date/Time Associated Diagnosis Comments PAP TEST Today 12/18/2019 9:20 EDT Encounter for other general examination HPV DNA DETECTION WITH GENOTYPING, PCR Today 12/18/2019 9:20 EDT Encounter for other general examination documented in this encounter Results * HUMAN PAPILLOMAVIRUS (HPV) DETECTION-HIGH RISK TYPES (12/18/2019 9:20 EDT) HPV other High Risk types, PCR Negative Negative 12/31/2019 15:36 EDT [facility] Comment:No E6 or E7 mRNA is detected from HPV types 16,18,31,33,35,39,45,51,52,56,58,59,66, and 68 by manufacturing engineering manager mediated amplification. Papanicolaou smear specimen (specimen) CERVIX UTERI STRUCTURE / Unknown 12/18/2019 9:20 EDT 12/28/2019 13:06 EDT Josy AGUILARP MICROBIOLOGY - GENER AL ORDERABLES Performing Organization Address City/[facility]/ZIP Co de Phone Number [facility] [address] [place] [address] * PAP TEST (12/18/2019 9:20 EDT) Specimens A. Cervix and/or Endocervix , ThinPrep Imaging System with Manual Evaluation 12/31/2019 15:36 EDT [facility] Specimen Adequacy Satisfactory for Evaluation - transformation zone component present 12/31/2019 15:36 EDT [facility] General Categorization Negative for intraepithelial lesion or malignancy 12/31/2019 15:36 EDT [facility] Attestation . 12/31/2019 15:36 EDT [facility] at 1536 Clinical History NONE 12/31/19 20 15:36 EDT [facility] HPV The result for the Human Papillomavirus (HPV) Detection-High Risk Types is Negative. No E6 or E7 mRNA is detected from HPV types 16,18,31,33,35,39 ,45,51,52,56,58,5 9,66, and 68 by manufacturing engineering manager mediated amplification.Anay ting was performed on specimen [id number] and was resulted on 12/31/2019 1524 EDT by DEVIN, LAB INSTRUMENT RESULTS IN 12/31/2019 15:36 EDT [facility] Scanned Images 12/31/2019 15:36 EDT [facility] Papanicolaou smear specimen (specimen) CERVIX UTERI STRUCTURE / Unknown 12/18/2019 9:20 EDT 12/19/2019 14:53 EDT Josy HUSSEIN PATHOLOGY ORDERABLES Performing Organization Address City/[facility]/ZIP Co de Phone Number [facility] [address] [place] [address] documented in this encounter Visit Diagnoses Diagnosis Encounter for other general examination documented in this encounter Care Teams Try On Baster Relationship Specialty Start Date End Date Aung Vega MD [address] [place] [address] PCP - General 10/11/08 documented as of this encounter
--- OUTSIDE RECORDS SUMMARY | 2024-01-13 00:50 | XMS_ITS | Encounter Summary ---
Author Organization [facility] Address [address] [place] [address] Care Team Providers Care Hot Blaster Name Role Phone Aung Vega MD Primary Care Provider Encounter Details Date Type Department Care Team (Late st Contact Info) Description 04/27/2016 15:44 EST - 04/27/2016 15:45 EST Hospital Encounter [facility] [address] [address] Jeremy Germain, VAULT ATTENDANT [address] [facility] [address] [place] [address] Discharge Disposition: Home or Self Care Social History Tobacco Use Types Packs/Day Years Used Date Smoking Tobacco: Never Assessed Sex and Gender Information Value Date Recorded Sex Assigned at Not on file Gender Identity Not on file Sexual Orientation Not on file documented as of this encounter Discharge Diagnoses Diagnosis Z01.411 Encounter for gynecological examination (general) (routine) with abnormal findings-Z01.411[ICD-10-CM] documented in this encounter Discharge Disposition Disposition Code Departure Means Destination Home or Self Care documented in this encounter Plan of Treatment Not on file documented as of this encounter Visit Diagnoses Not on filedocumented in this encounter Care Teams Hot Blaster Relationship Specialty Start Date End Date Aung Vega MD [address] [place] [address] PCP - General 10/11/08 documented as of this encounter
--- OUTSIDE RECORDS SUMMARY | 2024-01-13 00:50 | XMS_ITS | Encounter Summary ---
Author Organization [facility] Address [address] [place] [address] Care Team Providers Care Order Selector Name Role Phone Unavailable Primary Care Provider Unavailabl e Encounter Details Date Type Department Care Team (Late st Contact Info) Description 12/06/2000 8:31 EDT - 12/06/2000 11:59 EDT Hospital Encounter [facility] - Other [address] [place] [address] [place] Rolon [place] [address] [facility] [address] [place] [address] Unknown, Provider, Discharge Disposition: Auto Discharge Social History Tobacco [...] Priority Date/Time Associated Diagnosis Comments CYTOPATHOLOGY Routine 12/06/2000 0:00 EDT documented in this encounter Results * CYTOPATHOLOGY (12/06/2000 0:00 EDT) Pathology Report: CYTOPATHOLOGY REPORT Reports generated via electronic interface contain original data; however they are lacking the format of the original report. Caution should be taken when reading/interpreti ng unformatted reports. Name: ? JULEE BLACK ? Accession #: ? [id number] : ? 1970 (Age: 30) ??F ?Collect Date: ? 12/06/2000 Location: ? [facility] ? Receive Date: ? 12/09/2000 Provider: ?DAITYA ROLON MD Copy to: ? Specimen/Source: ?ThinPrep Pap Test, Cervix Last Menstrual Period: ? Previous Gynecologic Pathology: ? Yes ? SPECIMEN ADEQUACY ? Satisfactory for evaluation. GENERAL CATEGORIZATION ? Within Normal Limits ? Document reviewed and electronically signed by: ? Renee Villarreal, LIZZIE(ASCP)(IAC) ? Report Date: ??12/12/2000 10:48 End of Report [facility] 12/06/2000 12/09/2000 Aditya Rolon MD PATHOLOGY ORDERABL ES [facility] [address] [place] [address] documented in this encounter Visit Diagnoses Not on filedocumented in this encounter
--- OUTSIDE RECORDS SUMMARY | 2024-01-13 00:50 | XMS_ITS | Encounter Summary ---
Author Organization [facility] Address [address] [place] [address] Care Team Providers Care Site Supervisor Name Role Phone Unavailable Primary Care Provider Unavailabl e Encounter Details Date Type Department Care Team (Latest Contact Info) Description 10/10/2001 9:11 EDT - 10/10/2001 11:59 EDT Hospital Encounter [facility] - Other [address] [place] [address] Aung Bales MD [address] [place] [phone] Unknown, ProviderMD Discharge Disposition: Auto Discharge Social History Tobacco [...] Priority Date/Time Associated Diagnosis Comments CYTOPATHOLOGY Routine 10/10/2001 0:00 EDT documented in this encounter Results * CYTOPATHOLOGY (10/10/2001 0:00 EDT) Pathology Report: CYTOPATHOLOGY REPORT Reports generated via electronic interface contain original data; however they are lacking the format of the original report. Caution should be taken when reading/interpreti ng unformatted reports. Name: ? WAYNE JULEE D ? Accession #: ? [id number] : ? 1970 (Age: 31) ??F ?Collect Date: ? 10/10/2001 Location: ? [facility] ? Receive Date: ? 10/12/2001 Provider: ?AUNG BALES MD Copy to: ? Specimen/Source: ?Conventional Pap Test, Cervix Last Menstrual Period: ? Menstrual/Pregnanc y Status: ? SPECIMEN ADEQUACY ? Satisfactory for Evaluation - transformation zone component absent GENERAL CATEGORIZATION ? Negative for Intraepithelial Lesion or Malignancy ? Document reviewed and electronically signed by: ? Maik Farias, LIZZIE(ASCP) ? Report Date: ??10/17/2001 11:04 End of Report [facility]IE[facility] 10/10/2001 10/12/2001 Aung Bales MD PATHOLOGY ORDERABLE S [facility] [address] [place] [address] documented in this encounter Visit Diagnoses Not on filedocumented in this encounter
--- OUTSIDE RECORDS SUMMARY | 2024-01-13 00:50 | XMS_ITS | Encounter Summary ---
Author Organization [facility] Address [address] [place] [address] Care Team Providers Care Bellows Filler Name Role Phone Aung Vega MD Primary Care Provider Encounter Details Date Type Department Care Team (Late st Contact Info) Description 01/29/2004 Results Only [facility] - Maple conversion [address] [place] [address] Unknown, Provider, Social History Tobacco Use Types Packs/Day Years Used Date Smoking Tobacco: Never Assessed Sex and Gender Information Value Date Recorded Sex Assigned at Not on file Gender Identity Not on file Sexual Orientation Not on file documented as of this encounter Plan of Treatment Not on file documented as of this encounter Procedures Procedure Name Priority Date/Time Associated Diagnosis Comments RUBELLA IGG AB Routine 01/29/2004 20:15 EDT HEPATITIS B SURFACE ANTIGEN Routine 01/29/2004 20:15 EDT SYPHILIS SERO (RPR) Routine 01/29/2004 2 0:15 EDT HIV 1/2 ANTIGEN AND ANTIBODY, 4TH GENERATION Routine 01/29/2004 12:50 EDT documented in this encounter Results * RUBELLA IGG AB (01/29/2004 20:15 EDT) Rubella IgG Scr Antibody detected [facility] 01/29/2004 20:1 5 EDT 01/30/2004 21:55 EDT Provider Unknown HISTORICAL LAB FOR S Q LOAD Performing Organization Address [facility] Co de Phone Number [facility] [address] [place] [address] * SYPHILIS SERO (RPR) (01/29/2004 20:15 EDT) Syphilis Sero (RPR) NONREACT. NR Dils [facility] 01/29/2004 20:1 5 EDT 01/30/2004 21:55 EDT Provider Unknown IMMUNOLOGY AND SEROL OGY ORDERABLES Performing Organization Address [facility] de Phone Number [facility] [address] [place] [address] * HEPATITIS B SURFACE ANTIGEN (01/29/2004 20:15 EDT) Hepatitis B Surface Ag Neg [facility] 01/29/2004 20:1 5 EDT 01/30/2004 21:55 EDT Provider Unknown CHEMISTRY & BLOOD GA S ORDERABLES Performing Organization Address [facility] de Phone Number [facility] [address] [place] [address] * HIV ANTIBODY (01/29/2004 12:50 EDT) HIV 1/2 Antibody NONREACT. NR [facility] 01/29/2004 12:5 0 EDT 01/30/2004 21:55 EDT Provider Unknown IMMUNOLOGY AND SEROL OGY ORDERABLES Performing Organization Address [facility] Co de Phone Number [facility] [address] [place] [address] documented in this encounter Visit Diagnoses Not on filedocumented in this encounter Care Teams Bellows Filler Relationship Specialty Start Date End Date Aung Vega MD [address] [place] [address] PCP - General 10/11/08 documented as of this encounter
--- OUTSIDE RECORDS SUMMARY | 2024-01-13 00:50 | XMS_ITS | Encounter Summary ---
Author Organization [facility] Address [address] [place] [address] Care Team Providers Care Tire Regrooving Machine Operator Name Role Phone Unavailable Primary Care Provider Unavailabl e Encounter Details Date Type Department Care Team (Late st Contact Info) Description 10/09/2008 7:24 EDT - 10/09/2008 7:25 EDT Hospital Encounter [facility] - Other [address] [place] [address] Isaac Logan MD [address] [place] [address] Discharge Disposition: Home or Self Care Social [...]
--- OUTSIDE RECORDS SUMMARY | 2024-01-13 00:50 | XMS_ITS | Encounter Summary ---
Author Organization [facility] Address [address] [place] [address] Care Team Providers Care Academic Coordinator Name Role Phone Aung Bales MD Primary Care Provider Encounter Details Date Type Department Care Team (Late st Contact Info) Description 11/03/2004 Results Only [facility] - Maple conversion [address] [place] [address] Aung Bales MD [address] [place] [address] Social History Tobacco Use Types [...] Priority Date/Time Associated Diagnosis Comments CYTOPATHOLOGY Routine 11/03/2004 0:00 EDT documented in this encounter Results * CYTOPATHOLOGY (11/03/2004 0:00 EDT) Pathology Report: CYTOPATHOLOGY REPORT Reports generated via electronic interface contain original data; however they are lacking the format of the original report. Caution should be taken when reading/interpreti ng unformatted reports. Name: ? JULEE ALANIZ ? Accession #: ? [id number] : ? 1970 (Age: 34) ??F ?Collect Date: ? 11/03/2004 Location: ? [facility] ? Receive Date: ? 11/05/2004 Provider: ?AUNG BALES MD Copy to: ? Specimen/Source: ?ThinPrep Pap Test, Cervix Last Menstrual Period: ? Menstrual/Pregnanc y Status: ? Post : 6 weeks Other: ? HPVA - HPV testing requested if ASC-US on the current ThinPrep Pap test. ? SPECIMEN ADEQUACY ? Satisfactory for Evaluation - transformation zone component present GENERAL CATEGORIZATION ? Negative for Intraepithelial Lesion or Malignancy ? Document reviewed and electronically signed by: ? LIZZIE Fay(ASCP) ? Report Date: ??11/11/2004 10:19 End of Report [facility] 11/03/2004 11/05/2004 Aung Bales MD PATHOLOGY ORDERABLE S Performing Organization Address City/State/[facility] Co de Phone Number [facility] [address] [place] [address] documented in this encounter Visit Diagnoses Not on filedocumented in this encounter Care Teams Academic Coordinator Relationship Specialty Start Date End Date Aung Bales MD [address] [place] [address] PCP - General 10/11/08 documented as of this encounter
--- OUTSIDE RECORDS SUMMARY | 2024-01-13 00:50 | XMS_ITS | Encounter Summary ---
Author Organization [facility] Address [address] [place] [address] Care Team Providers Care Cooker Chip Name Role Phone Aung Bales MD Primary Care Provider Encounter Details Date Type Department Care Team (Late st Contact Info) Description 03/04/2008 Before PRISM Converted Visit (Maple) [facility] - Maple conversion [address] [place] [address] Aung Bales MD [address] [place] [address] Social History Tobacco Use Types [...] Priority Date/Time Associated Diagnosis Comments CYTOPATHOLOGY Routine 03/04/2008 0:00 EDT documented in this encounter Results * CYTOPATHOLOGY (03/04/2008 0:00 EDT) Pathology Report: CYTOPATHOLOGY REPORT ? Reports generated via electronic interface contain original data; ? however they are lacking the format of the original report. ? Caution should be taken when reading/interpreti ng unformatted reports. ? Name: ? JULEE ALANIZ ? Accession #: ? [id number] ? : ? 1970 (Age: 38) ??F ?Collect Date: ? 03/04/2008 ? Location: ? [facility] ? Receive Date: ? 03/05/2008 ? Provider: ?AUNG BALES MD ? Copy to: ? Specimen/Source: ?Pap Test, Cervix, ThinPrep Imaging System with manual ?? evaluation ? Last Menstrual Period: ? Other: ? HPVA - HPV testing requested if ASC-US on the current ThinPrep Pap test. ? SPECIMEN ADEQUACY ? Satisfactory for Evaluation ? - transformation zone component present ? GENERAL CATEGORIZATION ? Negative for Intraepithelial Lesion or Malignancy ? Document reviewed and electronically signed by: ? Radha F. Colasacco, SCT(ASCP) ? Report Date: ??03/07/2008 12:18 ? End of Report ? [facility] 03/04/2008 03/05/2008 Aung Bales MD PATHOLOGY ORDERABLE S Performing Organization Address City/State/[facility] Co de Phone Number [facility] [address] [place] [address] documented in this encounter Visit Diagnoses Not on filedocumented in this encounter Care Teams Cooker Chip Relationship Specialty Start Date End Date Aung Bales MD [address] [place] [address] PCP - General 10/11/08 documented as of this encounter
--- OUTSIDE RECORDS SUMMARY | 2024-01-13 00:50 | XMS_ITS | Encounter Summary ---
Author Organization [facility] Address [address] [place] [address] Care Team Providers Care Director Of In Service Education Name Role Phone Unavailable Primary Care Provider Unavailabl e Encounter Details Date Type Department Care Team (Late st Contact Info) Description 09/24/[address] [facility] Laboratory Services - [facility] ([facility] [place] [place] [address] [place], [place] [address] Claudette Collins, KEENAN [address] [place], [place] [address] Social History Tobacco Use Types Packs/Day Years Used Date Smoking Tobacco: Never Assessed Sex and Gender Information Value Date Recorded Sex Assigned at Not on file Gender Identity Not on file Sexual Orientation Not on file documented as of this encounter Plan of Treatment Not on file documented as of this encounter Procedures Procedure Name Priority Date/Time Associated Diagnosis Comments CYTOPATHOLOGY Routine 09/24/2008 0:00 EDT documented in this encounter Results * CYTOPATHOLOGY (09/24/2008 0:00 EDT) Pathology Report: CYTOPATHOLOGY REPORT ? Reports generated via electronic interface contain original data; ? however they are lacking the format of the original report. ? Caution should be taken when reading/interpreti ng unformatted reports. ? Name: ? JULEE ALANIZ D ? Accession #: ? [id number] ? : ? 1970 (Age: 38) ??F ?Collect Date: ? 09/24/2008 ? Location: ? [facility] ? Receive Date: ? 09/26/2008 ? Provider: ?CLAUDETTE TAYLORWOOD HOUSE DESIGNER ? Copy to: ? Specimen/Source: ?Pap Test, Cervix/Endocervix, ThinPrep Imaging System ? with manual evaluation ? Last Menstrual Period: ? Previous Gynecologic Pathology: ? Yes: Abnl pap 1984 ? Treatment History: ? Colposcopy: 1984 ? SPECIMEN ADEQUACY ? Satisfactory for Evaluation ? - transformation zone component present ? GENERAL CATEGORIZATION ? Negative for Intraepithelial Lesion or Malignancy ? Document reviewed and electronically signed by: ? Tasia Aguilera, SCT(ASCP) ? Report Date: ??09/30/2008 10:08 ? End of Report ? [facility] 09/24/2008 09/26/2008 Claudette Collins HOUSE DESIGNER PATHOLOGY ORDERAB LES [facility] [address] [place] [address] documented in this encounter Visit Diagnoses Not on filedocumented in this encounter
--- OUTSIDE RECORDS SUMMARY | 2024-01-13 00:50 | XMS_ITS | Encounter Summary ---
Author Organization [facility] Address [address] [place] [address] Care Team Providers Care Mva Reactor Operator Head Name Role Phone Aung Bales MD Primary Care Provider Encounter Details Date Type Department Care Team (Late st Contact Info) Description 03/10/2004 Results Only [facility] [address] [place] [address] Unknown, Provider, Social History Tobacco Use Types Packs/Day Years Used Date Smoking Tobacco: Never Assessed Sex and Gender Information Value Date Recorded Sex Assigned at Not on file Gender Identity Not on file Sexual Orientation Not on file documented as of this encounter Plan of Treatment Not on file documented as of this encounter Procedures Procedure Name Priority Date/Time Associated Diagnosis Comments N. GONORRHOEAE AMPLIFIED PROBE Routine 03/10/2004 19:23 EDT ZZCHLAMYDIA TRACHOMATIS AMPLIFIED PROBE Routine 03/10/2004 19:23 EDT CYTOPATHOLOGY Routine 03/10/2004 0:00 EDT documented in this encounter Results * N. GONORRHOEAE AMPLIFIED PROBE (03/10/2004 19:23 EDT) Result No Neisseria gonorrhoeae DNA detected by sport intern mediated amplification. [facility] Report Status Final [id number] [facility] Specimen Description Urine [facility] 03/10/2004 19:2 3 EDT 03/11/2004 21:26 EDT Provider Unknown MICROBIOLOGY - GENER AL ORDERABLES Performing Organization Address [facility] de Phone Number [facility] [address] [place] [address] * CHLAMYDIA TRACHOMATIS AMPLIFIED PROBE (03/10/2004 19:23 EDT) Specimen Description Urine [facility] Result No Chlamydia trachomatis DNA detected by sport intern mediated amplification. [facility] Report Status Final [id number] [facility] 03/10/2004 19:2 3 EDT 03/11/2004 21:25 EDT Provider Unknown MICROBIOLOGY - GENER AL ORDERABLES Performing Organization Address [facility] de Phone Number [facility] [address] [place] [address] * CYTOPATHOLOGY (03/10/2004 0:00 EDT) Pathology Report: CYTOPATHOLOGY REPORT Reports generated via electronic interface contain original data; however they are lacking the format of the original report. Caution should be taken when reading/interpreti ng unformatted reports. Name: ? CORBIN JULEE D ? Accession #: ? [id number] : ? 1970 (Age: 34) ??F ?Collect Date: ? 03/10/2004 Location: ? [facility] ? Receive Date: ? 03/12/2004 Provider: ?AUNG BALES MD Copy to: ? Specimen/Source: ?ThinPrep Pap Test, Cervix Last Menstrual Period: ? Menstrual/Pregnanc y Status: ? Other: ? HPVA - HPV testing requested if ASC-US on the current ThinPrep Pap test. ? SPECIMEN ADEQUACY ? Satisfactory for Evaluation - transformation zone component absent GENERAL CATEGORIZATION ? Negative for Intraepithelial Lesion or Malignancy ? Document reviewed and electronically signed by: ? Renee Villarreal, LIZZIE(ASCP)(IAC) ? Report Date: ??03/18/2004 15:31 End of Report [facility] 03/10/2004 03/12/2004 Aung Bales MD PATHOLOGY ORDERABLE S [facility] [address] [place] [address] documented in this encounter Visit Diagnoses Not on filedocumented in this encounter Care Teams Mva Reactor Operator Head Relationship Specialty Start Date End Date Aung Bales MD [address] [place] [address] PCP - General 10/11/08 documented as of this encounter
--- OUTSIDE RECORDS SUMMARY | 2024-01-13 00:50 | XMS_ITS | Encounter Summary ---
Author Organization [facility] Address [address] [place] [address] Care Team Providers Care Regional Recruiter Name Role Phone Aung Vega MD Primary Care Provider [phone] Encounter Details Date Type Department Care Team (Late st Contact Info) Description 09/19/2020 Lab Requisition [facility] Pathology & Laboratory Medicine - [facility] [address], [place] [address] Outr Resulting Lab, Provider Social History Tobacco [...] Procedure Name Priority Date/Time Associated Diagnosis Comments HIGH SENSITIVITY C-REACTIVE PROTEIN (CARDIOVASCULAR DISEASE) Routine 09/19/2020 7:50 EDT documented in this encounter Results * HIGH SENSITIVITY C-REACTIVE PROTEIN (CARDIOVASCULAR DISEASE) (09/19/2020 7:50 EDT) High Sensitivity CRP 1.41 See Note mg/L 09/19/2020 16:27 EDT [facility] Comment: Reference Range: ??Source: The [place] [employer] Clinical Practice Recommendations, 2003 ??Low Risk: ? <1.0 mg/L ??Average Risk: ?? 1.0 - 3.0 mg/L ??High Risk: ?>3.0 mg/L ??Indeterminate*: >10.0 mg/L ??*May be an indication of another source of inflammation or infection Blood VENOUS BLOOD / Unknown 09/19/2020 7:50 EDT 09/19/2020 16:03 EDT Provider Outr Resulting Lab CHEMISTRY & BLOOD GAS ORDERABLES [facility] [address] [place] [address] documented in this encounter Visit Diagnoses Not on filedocumented in this encounter Care Teams Regional Recruiter Relationship Specialty Start Date End Date Aung Vega MD [address] [place] [address] PCP - General 10/11/08 documented as of this encounter
[2024-01-13 11:11] LABS: Abs Immature Grans 0.01 10^3/uL (0.0-0.06); Absolute Basophil Count 0.06 10^3/uL (0.0-0.2); Absolute Eosinophil Count 0.14 10^3/uL (0.0-0.7); Absolute Lymphocyte Count 2.44 10^3/uL (1.2-3.4); Absolute Neutrophil Count 2.85 10^3/uL (1.2-6.7); Eosinophils % 2.3 %; HCT 40.8 % (36.0-46.0); HGB 13.8 g/dL (11.2-15.7); Immature Grans % 0.2 %; Lymphocytes % 40.7 %; MCH 31.2 pg (27.0-33.0); MCHC 33.8 % (32.0-36.0); MCV 92 fL (80-95); MPV 9.3 fL (8.0-11.0); Monocytes % 8.3 %; Neutrophils % 47.5 %; Platelet Count 365 10^3/uL (130-400); RBC 4.43 10^6/uL (3.93-5.22); RDW 11.9 % (11.7-14.6); RDW-SD 40.3 fL
[2024-01-13 12:41] LABS: ALT 26 U/L (14-59); AST 20 U/L (15-37); Albumin 4.1 g/dL (3.4-5.0); Alkaline Phosphatase 42 U/L (46-116); Anion Gap 7.1 mmol/L (3-11); BUN 11 mg/dL (7-18); Bilirubin, Total 0.68 mg/dL (0.2-1.0); CO2 30.9 mmol/L (21.0-32.0); CREATININE 0.7 mg/dL (0.55-1.02); Calcium 9.2 mg/dL (8.5-10.1); Calculated LDL 135 mg/dL (<100); Chloride 103 mmol/L (98-107); Cholesterol 233 mg/dL (<200); Estimated GFR 103.35 (mL/min/1.73m2); Glucose 93 mg/dL (74-106); HDL Cholesterol 87 mg/dL (40-60); Potassium 3.6 mmol/L (3.5-5.1); Sodium 141 mmol/L (136-145); Total Protein 7.9 g/dL (6.4-8.2); Triglyceride 57 mg/dL (<150); Vitamin D 25 Total 39.1 ng/mL (30-100)
[2024-01-13 12:55] LABS: C-Reactive Protein < 0.50 mg/dL (<or=0.5)
[2024-01-15 12:11] LABS: Lipoprotein (a) 52 nmol/L (<75)
[2024-01-18 08:56] LABS: Apolipoprotein A1, S 170 mg/dL (>=140); Apolipoprotein B, S 96 mg/dL (See Comment); Apolipoprotein B/A 1 ratio 0.6 (See Comment)
== END 2024-01-13 00:43 | disposition home or self-care (01) ==
PROVIDERS: PCP Student in an Organized Health Care Education/Training Program; Visit Provider Naturopath
DX: I10 Essential (primary) hypertension (principal); E78.00 Pure hypercholesterolemia, unspecified; F51.01 Primary insomnia; R42 Dizziness and giddiness; R53.82 Chronic fatigue, unspecified; D50.9 Iron deficiency anemia, unspecified; E55.9 Vitamin D deficiency, unspecified; R00.2 Palpitations
CPT/HCPCS: 36415; 80053; 80061; 82172; 82306; 83695; 85025; 86140

== ENCOUNTER 2024-06-27 00:09 | Outpatient (CLI) | payer BC, SELFPAY ==
--- OUTSIDE RECORDS SUMMARY | 2024-06-27 00:12 | XMS_ITS | Encounter Summary ---
Author Organization [facility] Address [address] [place] [address] Care Team Providers Care Linen Supply Load Builder Name Role Phone Aung Bales MD Primary Care Provider Encounter Details Date Type Department Care Team (Late st Contact Info) Description 10/11/[address] [facility] [address] [place] [address] Aung Bales MD [address] [place] [address] Social History Tobacco Use Types Packs/Day Years Used Date Smoking Tobacco: Never Assessed Comments Unknown Sex and Gender Information Value Date Recorded Sex Assigned at Not on file Legal Sex Female 18:10 EST Gender Identity Not on file Sexual Orientation [...] ? JULEE ALANIZ ? Accession #: ? [id number] : ? 1970 (Age: 35) ??F ?Collect Date: ? 10/11/2005 Location: ? [facility] ? Receive Date: ? 10/13/2005 Provider: ?AUNG BALES MD Copy to: ? Specimen/Source: ?ThinPrep Pap Test, Cervix, processed on [employer] ThinPrep Imaging System, with manual evaluation Last [...] Report Date: ??10/15/2005 15:37 End of Report [facility] 10/11/2005 10/13/2005 us Aung Bales MD PATHOLOGY ORDERABLES Final Result Performing Organization Address City/State/[facility] Co de Phone Number [facility] [address] [place] [address] documented in this encounter Visit Diagnoses Not on filedocumented in this encounter Care Teams Linen Supply Load Builder Relationship Specialty Start Date End Date Aung Bales MD [address] [place] [address] PCP - General 10/11/08 documented as of this encounter
--- OUTSIDE RECORDS SUMMARY | 2024-06-27 00:12 | XMS_ITS | Encounter Summary ---
Author Organization [facility] Address [address] [place] [address] Care Team Providers Care Global Vp Creative + Content Marketing Name Role Phone Aung Vega MD Primary Care Provider [phone] Encounter Details Date Type Department Care Team (Late st Contact Info) Description 11/11/2011 Results Only [facility] Laboratory Services - [facility] [address] [place], [place] [address] Claudette Collins FNP [address] [place] [address] Social History Tobacco Use Types Packs/Day Years [...] ng unformatted reports. Name: ? JULEE ALANIZ Foreign ? Accession #: ? [id number] ? : ? 1970 (Age: 41) ??F ?Collect Date: ? 11/11/2011 ? Location: ? [facility] ? Receive Date: ? 11/15/2011 ? Provider: CLAUDETTE COLLINS BOX CHIPPER Copy to: ? Final Report SPECIMEN ADEQUACY [...] types 16,18,31,33,35, 39,45,51,52,56,58, 59,66, and 68 by business line controller mediated amplification. Comments Document reviewed and electronically signed by: ? System Interface ? Report date: 11/18/2011 By the signature above, the attending physician certifies that he/she has personally conducted a gross and/or microscopic examination of the described specimens and rendered or confirmed the above diagnosis. End of Report [facility] 11/11/2011 11/15/2011 us Claudette Toure Karina BOX CHIPPER PATHOLOGY ORDERABLES Shahrzad dumont Result [facility] [address] [place] [address] documented in this encounter Visit Diagnoses Not on filedocumented in this encounter Care Teams Global Vp Creative + Content Marketing Relationship Specialty Start Date End Date Aung Vega MD [address] [place] [address] PCP - General 10/11/08 documented as of this encounter
--- OUTSIDE RECORDS SUMMARY | 2024-06-27 00:12 | XMS_ITS | Encounter Summary ---
Author Organization [facility] Address [address] [place] [address] Care Team Providers Care Leather Cleaner Name Role Phone Aung Bales MD Primary Care Provider [phone] Encounter Details Date Type Department Care Team (Late st Contact Info) Description 11/03/[address] [facility] [address] [place] [address] Aung Bales MD [address] [place] [address] Social History Tobacco Use Types [...] ? JULEE ALANIZ ? Accession #: ? [id number] : ? 1970 (Age: 34) ??F ?Collect [...] End of Report [facility] 11/03/2004 11/05/2004 us Aung Bales MD PATHOLOGY ORDERABLES Final Result [facility] [address] [place] [address] documented in this encounter Visit Diagnoses Not on filedocumented in this encounter Care Teams Leather Cleaner Relationship Specialty Start Date End Date Aung Bales MD [address] [place] [phone] PCP - General 10/11/08 documented as of this encounter
--- OUTSIDE RECORDS SUMMARY | 2024-06-27 00:12 | XMS_ITS | Encounter Summary ---
Author Organization [facility] Address [address] [place] [address] Care Team Providers Care Belt Cutter Name Role Phone Aung Vega MD Primary Care Provider Encounter Details Date Type Department Care Team (Late st Contact Info) Description 03/10/2004 Results Only [facility] - [facility] [address] [place] [address] Unknown, Provider, Social History Tobacco Use Types [...] Result No Neisseria gonorrhoeae DNA detected by advertising executive mediated amplification. [facility] Report Status Final [id number] [facility] Specimen Description Urine [facility] 03/10/2004 19:2 3 EDT 03/11/2004 21:26 EDT us Provider Unknown MICROBIOLOGY - GENERAL ORDER ROSLYN Final Result Performing Organization Address City/[facility] Co de Phone Number [facility] [address] [place] [address] * CHLAMYDIA TRACHOMATIS AMPLIFIED PROBE (03/10/2004 19:23 EDT) Specimen Description Urine [facility] Result No Chlamydia trachomatis DNA detected by advertising executive mediated amplification. [facility] Report Status Final [id number] [facility] 03/10/2004 19:2 3 EDT 03/11/2004 21:25 EDT us Provider Unknown MICROBIOLOGY - GENERAL ORDER ROSLYN Final Result Performing Organization Address [facility] de Phone Number [facility] [address] [place] [address] * CYTOPATHOLOGY (03/10/2004 0:00 EDT) Pathology Report: CYTOPATHOLOGY REPORT Reports generated via electronic interface contain original data; however they are lacking the format of the original report. Caution should be taken when reading/interpreti ng unformatted reports. Name: ? ALANIZ JULEE Foreign ? Accession #: ? [id number] : ? 1970 (Age: 34) ??F ?Collect Date: ? 03/10/2004 Location: ? [facility] ? Receive Date: ? 03/12/2004 Provider: ?AUNG VEGA MD Copy to: ? Specimen/Source: ?ThinPrep Pap Test, Cervix Last Menstrual Period: ? Menstrual/Pregnanc y Status: ? Other: ? HPVA - HPV testing requested if ASC-US on the current ThinPrep Pap test. ? SPECIMEN ADEQUACY ? Satisfactory for Evaluation - transformation zone component absent GENERAL CATEGORIZATION ? Negative for Intraepithelial Lesion or Malignancy ? Document reviewed and electronically signed by: ? Renee Villarreal, CT(ASCP)(IAC) ? Report Date: ??03/18/2004 15:31 End of Report [facility] 03/10/2004 03/12/2004 us Aung Vega MD PATHOLOGY ORDERABLES Final Result Performing Organization Address City/State/[facility] Co de Phone Number [facility] [address] [place] [address] documented in this encounter Visit Diagnoses Not on filedocumented in this encounter Care Teams Belt Cutter Relationship Specialty Start Date End Date Aung Vega MD [address] [place] [phone] PCP - General 10/11/08 documented as of this encounter
--- OUTSIDE RECORDS SUMMARY | 2024-06-27 00:12 | XMS_ITS | Patient Health Record ---
Author Organization [facility] Address [address] [place] [address] Care Team Providers Care Deblocker Name Role Phone Marcellus QURESHI, Jeremy Primary Care Provider [phone] Reason For Referral No Information Medications Medication SIG (Take, Route, Frequency, Duration) Notes Start Date End Date Status Fish Oil Active Probiotic Active Multivitamin Active Social History Tobacco Use: Social History Observation Description Date Details (start date - stop date) Former Smoker NA - NA Smoking Question Answer Notes Are you a: former smoker How long has it been since you last smoked? 5-10 years Section Notes: 14 and 11 boys 14 and 11 boys 14 and 11 boys 15 and 13 boys Problems Problem Type SNOMED Code ICD Code Onset Dates Problem Status W/U Status Risk Notes Problem SI - Stress incontinence (86119913) Stress incontinence (female) (male) (N39.3) Active confirmed Problem Irregular menstruation (39957661) Irregular menstruation, unspecified (N92.6) Active confirmed Plan Of Treatment Pending Test Test Name Order Date MAMMOGRAM, SCREENING 07/13/2017 Insurance Providers Payer Name Payer Address Payer Phone Subscriber Number Group Number Insured Name Patient Relationship to Insured Coverage Start Date Coverage End Date [place] [address] [place] [phone] [id number] AlanizElvia alvaresissa Self - patient is the insured Medical (General) History Medical History History ICD Code anxiety depression Last pap: 04/27/16 NIL, HPV neg Surgical History Surgery Date(Month/Year) L breast lumpectomy 2007
--- OUTSIDE RECORDS SUMMARY | 2024-06-27 00:12 | XMS_ITS | Encounter Summary ---
Author Organization [facility] Address [address] [place] [address] Care Team Providers Care High School Science Teacher Name Role Phone Unavailable Primary Care Provider Unavailabl e Encounter Details Date Type Department Care Team (Late st Contact Info) Description 12/06/2000 8:31 EDT - 12/06/2000 11:59 EDT Hospital Encounter [facility] - Other [address] [place] [address] Aditya Rolon MD [address] [place] [address] Unknown, Provider, Discharge Disposition: Auto Discharge Social [...] ? JULEE ALANIZ ? Accession #: ? [id number] : ? 1970 (Age: 30) ??F ?Collect Date: ? 12/06/2000 Location: ? [facility] ? Receive Date: ? 12/09/2000 Provider: ?ADITYA ROLON MD Copy to: ? Specimen/Source: ?ThinPrep Pap Test, Cervix Last Menstrual Period: ? Previous Gynecologic Pathology: ? Yes ? SPECIMEN ADEQUACY ? Satisfactory for evaluation. GENERAL CATEGORIZATION ? Within Normal Limits ? Document reviewed and electronically signed by: ? Renee Villarreal, CT(ASCP)(IAC) ? Report Date: ??12/12/2000 10:48 End of Report [facility] 12/06/2000 12/09/2000 us Aditya Rolon MD PATHOLOGY ORDERABLES Final Result [facility] [address] [place] [address] documented in this encounter Visit Diagnoses Not on filedocumented in this encounter
--- OUTSIDE RECORDS SUMMARY | 2024-06-27 00:12 | XMS_ITS | Encounter Summary ---
Author Organization [facility] Address [address] [place] [address] Care Team Providers Care Temporary Receptionist Name Role Phone Aung Vega MD Primary Care Provider [phone] Encounter Details Date Type Department Care Team (Late st Contact Info) Description 12/19/2019 Lab Requisition [facility] Pathology & Laboratory Medicine - [facility] [address] [place] [address] Josy Randolph, [facility] [address] [place] [address] Encounter for other general examination Social [...] types, PCR Negative Negative 12/31/2019 15:36 EDT [facility] Comment:No E6 or E7 mRNA is detected from HPV types 16,18,31,33,35,39,45,51,52,56,58,59,66, and 68 by fine jewelry sales associate mediated amplification. Papanicolaou smear specimen (specimen) CERVIX UTERI STRUCTURE / Unknown 12/18/2019 9:20 EDT 12/28/2019 13:06 EDT Josy AGUILARP MICROBIOLOGY - GENERAL ORDER ROSLYN Final Result Performing Organization Address City/State/[facility] Co de Phone Number [facility] [address] [place] [address] * PAP TEST (12/18/2019 9:20 EDT) Specimens A. Cervix and/or Endocervix , ThinPrep Imaging System with Manual Evaluation 12/31/2019 15:36 [facility] Specimen Adequacy Satisfactory for Evaluation - transformation zone component present 12/31/2019 15:36 [facility] General Categorization Negative for intraepithelial lesion or malignancy 12/31/2019 15:36 [facility] Attestation . 12/31/2019 15:36 [facility] at 1536 Clinical History NONE 12/31/19 20 15:36 [facility] HPV The result for the Human Papillomavirus (HPV) Detection-High Risk Types is Negative. No E6 or E7 mRNA is detected from HPV types 16,18,31,33,35,39 ,45,51,52,56,58,5 9,66, and 68 by fine jewelry sales associate mediated amplification.Anay ting was performed on specimen [id number] and was resulted on 12/31/2019 1524 EDT by DEVIN, LAB INSTRUMENT RESULTS IN 12/31/2019 15:36 T [facility] Scanned Images 12/31/2019 15:36 [facility] Papanicolaou smear specimen (specimen) CERVIX UTERI STRUCTURE / Unknown 12/18/2019 9:20 EDT 12/19/2019 14:53 EDT Josy HUSSEIN PATHOLOGY ORDERABLES Final R esult [facility] [address] [place] [address] documented in this encounter Visit Diagnoses Diagnosis Encounter for other general examination documented in this encounter Care Teams Temporary Receptionist Relationship Specialty Start Date End Date Aung Vega MD [address] [place] [address] PCP - General 10/11/08 documented as of this encounter
--- OUTSIDE RECORDS SUMMARY | 2024-06-27 00:12 | XMS_ITS | Encounter Summary ---
Author Organization [facility] Address [address] [place] [address] Care Team Providers Care Corporate Strategy Associate Name Role Phone Aung Vega MD Primary Care Provider Encounter Details Date Type Department Care Team (Late st Contact Info) Description 02/04/2023 Lab Requisition [facility] Pathology & Laboratory Medicine - [facility] [address] [place], [place] [id number] Outr Resulting Lab, Provider Social History Tobacco [...] 32.3 See Table ng/mL 02/04/2023 19:38 EDT [facility] [...] Unknown 02/04/2023 7:45 EDT 02/04/2023 17:37 EDT us Provider Outr Resulting Lab CHEMISTRY & BLOOD GA S ORDERABLES Final Result [facility] [address] [place] [address] * ESTRADIOL, ADULTS (02/04/2023 7:45 EDT) Estradiol 23 See Note pg/mL 02/04/2023 19:38 EDT [facility] [...] Unknown 02/04/2023 7:45 EDT 02/04/2023 17:37 EDT us Provider Outr Resulting Lab CHEMISTRY & BLOOD GA S ORDERABLES Final Result Performing Organization Address [facility] Co de Phone Number [facility] [address] [place] [address] * DHEA SULFATE (02/04/2023 7:45 EDT) Pathologist [facility] DHEA Sulfate 111 56 - 283 ug/dL 02/07/2023 8:48 EDT [facility] Blood VENOUS BLOOD / Unknown 02/04/2023 7:45 EDT 02/04/2023 17:37 EDT us Provider Outr Resulting Lab CHEMISTRY & BLOOD GA S ORDERABLES Final Result Performing Organization Address [facility] de Phone Number [facility] [address] [place] [address] documented in this encounter Visit Diagnoses Not on filedocumented in this encounter Care Teams Corporate Strategy Associate Relationship Specialty Start Date End Date Aung Vega MD [address] [place] [address] PCP - General 10/11/08 documented as of this encounter
--- OUTSIDE RECORDS SUMMARY | 2024-06-27 00:12 | XMS_ITS | Encounter Summary ---
Author Organization [facility] Address [address] [place] [address] Care Team Providers Care Home Paraprofessional Name Role Phone Unavailable Primary Care Provider Unavailabl e Encounter Details Date Type Department Care Team (Late st Contact Info) Description 10/08/2008 Orders Only [facility] - [facility] [place] [address] [place], [place] [id number] [facility] [address] [place] [address] Social History Tobacco Use Types Packs/Day Years [...] ALANIZ, JULEE D ? Accession #: ? [id number] ? : ? 1970 (Age: 38) ??F ? Collect Date: ? 10/08/2008 ? Location: ? [facility] ? Receive Date: ? 10/08/2008 ? Provider: FLORI MECH MD ? Copy to: C JOURDAN LOVE MD ? CLAUDETTE MICHELINE MORTUARY OPERATIONS MANAGER ? Final Pathologic Diagnosis: ? Breast, left, excisional biopsy ([facility] [id number]; 10/03/08): ? 1. ?Fibroadenoma, complex type with [...] diagnosis. ? Specimen(s) Received: ? [facility] [id number] (2) ? Clinical History: ? Lt breast mass ? Gross Description: ? Two slides are received for review from [facility], one each labelled [id number], [id number] 2. ? End of Report ? [facility] 10/08/2008 10/08/2008 14: 42 EDT us Flori Logan MD PATHOLOGY ORDERABLES Final Resul t [facility] [address] [place] [address] documented in this encounter Visit Diagnoses Not on filedocumented in this encounter
--- OUTSIDE RECORDS SUMMARY | 2024-06-27 00:12 | XMS_ITS | Encounter Summary ---
Author Organization [facility] Address [address] [place] [address] Care Team Providers Care Finish Inspector Name Role Phone Unavailable Primary Care Provider Unavailabl e Encounter Details Date Type Department Care Team (Late st Contact Info) Description 09/24/2008 Orders Only [facility] Laboratory Services - [facility] ([facility]) [address] [place], [place] [address] Claudette Collins, KEENAN [address] [place], [place] [address] Social History Tobacco Use Types Packs/Day Years [...] ? JULEE ALANIZ ? Accession #: ? [id number] ? : ? 1970 (Age: 38) ??F ?Collect Date: ? 09/24/2008 ? Location: ? [facility] ? Receive Date: ? 09/26/2008 ? Provider: ?CLAUDETTE COLLINS MORNING CAREGIVER ? Copy to: ? Specimen/Source: ?Pap Test, [...] of Report ? [facility] 09/24/2008 09/26/2008 us Claudette Collins MORNING CAREGIVER PATHOLOGY ORDERABLES Shahrzad dumont Result [facility] [address] [place] [address] documented in this encounter Visit Diagnoses Not on filedocumented in this encounter
--- OUTSIDE RECORDS SUMMARY | 2024-06-27 00:12 | XMS_ITS | Encounter Summary ---
Author Organization [facility] Address [address] [place] [address] Care Team Providers Care Newspaper Stuffer Name Role Phone Aung Bales MD Primary Care Provider Encounter Details Date Type Department Care Team (Late st Contact Info) Description 03/04/2008 Before PRISM Converted Visit (Maple) [facility] - Maple conversion [address] [place] [address] Aung Bales MD [address] [place] [address] Social History Tobacco Use Types [...] ? JULEE ALANIZ ? Accession #: ? [id number] ? : ? 1970 (Age: 38) ??F [...] reviewed and electronically signed by: ? Radha Villatoro. asaccprem, SCT(ASCP) ? Report Date: ??03/07/2008 12:18 ? End of Report ? [facility] 03/04/2008 03/05/2008 us Aung Bales MD PATHOLOGY ORDERABLES Final Result [facility] [address] [place] [address] documented in this encounter Visit Diagnoses Not on filedocumented in this encounter Care Teams Newspaper Stuffer Relationship Specialty Start Date End Date Aung Bales MD [address] [place] [address] PCP - General 10/11/08 documented as of this encounter
--- OUTSIDE RECORDS SUMMARY | 2024-06-27 00:12 | XMS_ITS | Encounter Summary ---
Author Organization [facility] Address [address] [place] [address] Care Team Providers Care Housekeeping Staff Name Role Phone Aung Vega MD Primary Care Provider Encounter Details Date Type Department Care Team (Late st Contact Info) Description 04/27/2016 Results Only [facility]- PRISM [phone] Lincoln Germain, SPORTS CARTOONIST [address] [address] Social History Tobacco Use Types [...] JULEE ALANIZ Foreign ? Accession #: ? [id number] ? : ? 1970 (Age: 46) ??F ?Collect Date: ? 04/27/2016 ? Location: ? [facility] ? Receive Date: ? 04/28/2016 ? Provider: [facility] Copy to: ? Final Report SPECIMEN ADEQUACY ? Satisfactory for Evaluation - transformation zone component present GENERAL CATEGORIZATION ? Negative for Intraepithelial Lesion or Malignancy ?? Last Menstrual Period: 04/04/16 Specimen/Source: ??Pap Test, Cervix/Endocervix, ThinPrep Imaging System with manual evaluation Document reviewed and electronically signed by: ? Sangita Augustine, LIZZIE(ASCP) ? Report ??Date: 04/30/2016 16:19 HPV with Pap Test ? Date Ordered: ? 04/30/2016 ? Status: ?? Signed Out ?Date Complete: ? 05/06/2016 ? By: ??System Interface ? Date Reported: ? 05/06/2016 ? Interpretation RESULT: Negative for HPV. No E6 or E7 mRNA is detected from HPV types 16,18,31,33,35, 39,45,51,52,56,58, 59,66, and 68 by telephone operator chief mediated amplification. Comments Document reviewed and electronically signed by: ? System Interface ? Report date: 05/06/2016 By the signature above, the attending physician certifies that he/she has personally conducted a gross and/or microscopic examination of the described specimens and rendered or confirmed the above diagnosis. End of Report [facility] 04/27/2016 04/28/2016 Lincoln Germain APRN PATHOLOGY ORDERABLES Final Result [facility] [address] [place] [address] documented in this encounter Visit Diagnoses Not on filedocumented in this encounter Care Teams Housekeeping Staff Relationship Specialty Start Date End Date Aung Vega MD [address] [place] [address] PCP - General 10/11/08 documented as of this encounter
--- OUTSIDE RECORDS SUMMARY | 2024-06-27 00:12 | XMS_ITS | Encounter Summary ---
Author Organization [facility] Address [address] [place] [address] Care Team Providers Care Accountant Supervisor Name Role Phone Aung Vega MD Primary Care Provider Encounter Details Date Type Department Care Team (Late st Contact Info) Description 01/29/2004 Results Only [facility] - Maple conversion [address] [place] [address] Unknown, Provider, Social History Tobacco Use Types [...] 01/29/2004 20:1 5 EDT 01/30/2004 21:55 EDT us Provider Unknown HISTORICAL LAB FOR SQ LOAD F inal Result Performing Organization Address City/[facility]/ZIP Co de Phone Number [facility] [address] [place] [address] * SYPHILIS SERO (RPR) (01/29/2004 20:15 EDT) Syphilis Sero (RPR) NONREACT. NR Dils [facility] 01/29/2004 20:1 5 EDT 01/30/2004 21:55 EDT us Provider Unknown IMMUNOLOGY AND SEROLOGY ORDManuela ZEE Final Result Performing Organization Address [facility] Co de Phone Number [facility] [address] [place] [address] * HEPATITIS B SURFACE ANTIGEN (01/29/2004 20:15 EDT) Hepatitis B Surface Ag Neg [facility] 01/29/2004 20:1 5 EDT 01/30/2004 21:55 EDT us Provider Unknown CHEMISTRY & BLOOD GAS ORDERA BLES Final Result Performing Organization Address [facility] Co de Phone Number [facility] [address] [place] [address] * HIV ANTIBODY (01/29/2004 12:50 EDT) HIV 1/2 Antibody NONREACT. NR [facility] 01/29/2004 12:5 0 EDT 01/30/2004 21:55 EDT us Provider Unknown IMMUNOLOGY AND SEROLOGY RODRI ZEE Final Result Performing Organization Address [facility] Co de Phone Number [facility] [address] [place] [address] documented in this encounter Visit Diagnoses Not on filedocumented in this encounter Care Teams Accountant Supervisor Relationship Specialty Start Date End Date Aung Vega MD [address] [place] [address] PCP - General 10/11/08 documented as of this encounter
--- OUTSIDE RECORDS SUMMARY | 2024-06-27 00:12 | XMS_ITS | Encounter Summary ---
Author Organization [facility] Address [address] [place] [address] Care Team Providers Care Sign Carpenter Name Role Phone Aung Vega MD Primary Care Provider Encounter Details Date Type Department Care Team (Late st Contact Info) Description 12/25/2021 Lab Requisition [facility] Pathology & Laboratory Medicine - [facility] [address] [place], [place] [id number] Outr Resulting Lab, Provider Social History Tobacco [...] 2.9 See Table ng/mL 12/25/2021 18:00 EDT [facility] Comment: Female Reference Ranges: PHYSIOLOGICAL [...] ORDERABLES Final Result Performing Organization Address [facility] de Phone Number [facility] [address] [place] [address] * DHEA SULFATE (12/25/2021 7:40 EDT) DHEA Sulfate 98 56 - 283 ug/dL 12/28/2021 9:43 EDT [facility] Blood VENOUS BLOOD / Unknown 12/25/2021 7:40 EDT 12/25/2021 17:15 EDT Provider Outr Resulting Lab CHEMISTRY & BLOOD GA S ORDERABLES Final Result Performing Organization Address [facility] de Phone Number [facility] [address] [place] [address] documented in this encounter Visit Diagnoses Not on filedocumented in this encounter Care Teams Sign Carpenter Relationship Specialty Start Date End Date Aung Vega MD [address] [facility] [address] PCP - General 10/11/08 documented as of this encounter
--- OUTSIDE RECORDS SUMMARY | 2024-06-27 00:12 | XMS_ITS | Encounter Summary ---
Author Organization [facility] Address [address] [place] [address] Care Team Providers Care Primer Waterproofing Machine Adjuster Name Role Phone Unavailable Primary Care Provider Unavailabl e Encounter Details Date Type Department Care Team (Late st Contact Info) Description 10/09/2008 7:24 EDT - 10/09/2008 7:25 EDT Hospital Encounter [facility] - Other [address] [place] [address] Isaac Logan MD [address] [place] [address] Discharge Disposition: Home or Self Care Social [...]
--- OUTSIDE RECORDS SUMMARY | 2024-06-27 00:12 | XMS_ITS | Referral Summary ---
Author Organization [facility] Address [address] [place] [address] Care Team Providers Care Chucking Machine Set Up Operator Tool Name Role Phone Aung Vega MD Primary Care Provider Social History Tobacco Use Types Packs/Day Years Used Date Smoking Tobacco: Never Assessed Comments Unknown Sex and Gender Information Value Date Recorded Sex Assigned at Not on file Legal Sex Female 18:10 EST Gender Identity Not on file Sexual Orientation Not on file Plan of Treatment Not on file Care Teams Chucking Machine Set Up Operator Tool Relationship Specialty Start Date End Date Aung Vega MD [address] [facility] [place] [address] PCP - General 10/11/08
--- OUTSIDE RECORDS SUMMARY | 2024-06-27 00:12 | XMS_ITS | Encounter Summary ---
Author Organization [facility] Address [address] [place] [address] Care Team Providers Care Gift Consultant Name Role Phone Aung Vega MD Primary Care Provider [phone] Encounter Details Date Type Department Care Team (Late st Contact Info) Description 04/27/2016 15:44 EST - 04/27/2016 15:45 EST Hospital Encounter [facility] - [address] [address] Jeremy Germain, WIRE BENDER HAND [address] [facility] [address] [place] [address] Discharge Disposition: Home or Self [...] on filedocumented in this encounter Care Teams Gift Consultant Relationship Specialty Start Date End Date Aung Vega MD [address] [place] [phone] PCP - General 10/11/08 documented as of this encounter
--- OUTSIDE RECORDS SUMMARY | 2024-06-27 00:12 | XMS_ITS | Encounter Summary ---
Author Organization [facility] Address [address] [place] [address] Care Team Providers Care Switch Cleaner Name Role Phone Unavailable Primary Care Provider Unavailabl e Encounter Details Date Type Department Care Team (Latest Contact Info) Description 10/10/2001 9:11 EDT - 10/10/2001 11:59 EDT Hospital Encounter [facility] - Other [address] [place] [address] Aung Bales MD [address] [facility] [place] [phone] Unknown, Provider, Discharge Disposition: Auto Discharge Social [...] CORBIN JULEE D ? Accession #: ? [id number] : ? 1970 (Age: 31) ??F ?Collect [...] reviewed and electronically signed by: ? LIZZIE Bolaños(ASCP) ? Report Date: ??10/17/2001 11:04 End of Report [facility] 10/10/2001 10/12/2001 us Aung Bales MD PATHOLOGY ORDERABLES Final Result [facility] [address] [place] [address] documented in this encounter Visit Diagnoses Not on filedocumented in this encounter
--- OUTSIDE RECORDS SUMMARY | 2024-06-27 00:12 | XMS_ITS | Encounter Summary ---
Author Organization [facility] Address [address] [place] [address] Care Team Providers Care Title Curator Name Role Phone Unavailable Primary Care Provider Unavailabl e Encounter Details Date Type Department Care Team (Late st Contact Info) Description 07/26/2002 8:25 EST Hospital Encounter [facility] - Other [address] [place] [address] Aung Bales MD [address] [place] [phone] Unknown, Provider, Social History Tobacco Use Types [...] ? JULEE ALANIZ ? Accession #: ? [id number] : ? 1970 (Age: 32) ??F ?Collect [...] End of Report [facility] 07/26/2002 07/31/2002 us Aung Bales MD PATHOLOGY ORDERABLES Final Result [facility] [address] [place] [address] documented in this encounter Visit Diagnoses Not on filedocumented in this encounter
--- OUTSIDE RECORDS SUMMARY | 2024-06-27 00:12 | XMS_ITS | Encounter Summary ---
Author Organization [facility] Address [address] [place] [address] Care Team Providers Care Systems Operator Name Role Phone Unavailable Primary Care Provider Unavailabl e Encounter Details Date Type Department Care Team (Latest Contact Info) Description 04/04/2002 13:31 EST Hospital Encounter [facility] [address] [place] [address] Aung Vega MD [address] [place] [phone] Discharge Disposition: Auto Discharge Social History Tobacco [...]
--- OUTSIDE RECORDS SUMMARY | 2024-06-27 00:12 | XMS_ITS | Clinical Summary ---
Author Organization [facility] Address [address] [place] [address] Care Team Providers Care Baseball Inspector Name Role Phone Aung Vega MD Primary [...] - 19+ 3-dose series) 01/18 COVID-19 Vaccine ( season) 2024 Care Teams Baseball Inspector Relationship Specialty Start Date End Date Aung Vega MD [address] [place] [phone] PCP - General 10/11/08
--- OUTSIDE RECORDS SUMMARY | 2024-06-27 00:12 | XMS_ITS | Encounter Summary ---
Author Organization [facility] Address [address] [place] [address] Care Team Providers Care Tester Printed Circuit Boards Name Role Phone Aung Vega MD Primary Care Provider Encounter Details Date Type Department Care Team (Late st Contact Info) Description 09/19/2020 Lab Requisition [facility] Pathology & Laboratory Medicine - [facility] [address] [place], [place] [id number] Outr Resulting Lab, Provider Social History Tobacco [...] 1.41 See Note mg/L 09/19/2020 16:27 EDT [facility] Comment: Reference Range: ??Source: [employer] Clinical Practice Recommendations, 2003 ??Low Risk: ? <1.0 mg/L ??Average Risk: ?? 1.0 - 3.0 mg/L ??High Risk: ?>3.0 mg/L ??Indeterminate*: >10.0 mg/L ??*May be an indication of another source of inflammation or infection Blood VENOUS BLOOD / Unknown 09/19/2020 7:50 EDT 09/19/2020 16:03 EDT us Provider Outr Resulting Lab CHEMISTRY & BLOOD GA S ORDERABLES Final Result [facility] [address] [place] [address] documented in this encounter Visit Diagnoses Not on filedocumented in this encounter Care Teams Tester Printed Circuit Boards Relationship Specialty Start Date End Date Aung Vega MD [address] [place] [phone] PCP - General 10/11/08 documented as of this encounter
--- OUTSIDE RECORDS SUMMARY | 2024-06-27 00:12 | XMS_ITS | Encounter Summary ---
Author Organization [facility] Address [address] [place] [address] Care Team Providers Care Numberer And Wirer Name Role Phone Aung Vega MD Primary Care Provider Encounter Details Date Type Department Care Team (Late st Contact Info) Description 11/02/2006 Results Only [facility] - Maple conversion [address] [place] [address] Magalis Muñoz MD [address] [place] [address] Social History Tobacco Use Types Packs/Day Years [...] ? JULEE ALANIZ ? Accession #: ? [id number] : ? 1970 (Age: 36) ??F ?Collect Date: ? 11/02/2006 Location: ? [facility] ? Receive Date: ? 11/04/2006 Provider: ?MAGALIS MUÑOZ MD Copy to: ? Specimen/Source: ?ThinPrep Pap Test, Cervix, processed on [employer] ThinPrep Imaging System, with manual evaluation Last Menstrual Period: ? Other: ? HPVA - HPV testing requested if ASC-US on the current ThinPrep Pap test. ? SPECIMEN ADEQUACY ? Satisfactory for Evaluation - transformation zone component present GENERAL CATEGORIZATION ? Negative for Intraepithelial Lesion or Malignancy ? Document reviewed and electronically signed by: ? LIZZIE Quigley(ASCP) ? Report Date: ??11/10/2006 09:17 End of Report [facility] 11/02/2006 11/04/2006 us Magalis Muñoz MD PATHOLOGY ORDERABLES Final Res ult [facility] [address] [place] [address] documented in this encounter Visit Diagnoses Not on filedocumented in this encounter Care Teams Numberer And Wirer Relationship Specialty Start Date End Date Aung Vega MD [address] [place] [phone] PCP - General 10/11/08 documented as of this encounter
--- OUTSIDE RECORDS SUMMARY | 2024-06-27 00:12 | XMS_ITS | Encounter Summary ---
Author Organization [facility] Address [address] [place] [address] Care Team Providers Care Gas Pumping Station Operator Name Role Phone Aung Vega MD Primary Care Provider Encounter Details Date Type Department Care Team (Late st Contact Info) Description 12/21/2019 Lab Requisition [facility] Pathology & Laboratory Medicine - [facility] [address] [place], [place] [address] Outr Resulting Lab, Provider Social History Tobacco [...] 2.8 - 5.3 pg/mL 12/21/2019 17:18 EDT [facility] Blood VENOUS BLOOD / Unknown 12/21/2019 9:02 EDT 12/21/2019 16:05 EDT us Provider Outr Resulting Lab CHEMISTRY & BLOOD GA S ORDERABLES Final Result Performing Organization Address [facility] de Phone Number [facility] [address] [place] [address] * PROTEIN C ACTIVITY (12/21/2019 9:02 EDT) [facility] Protein C Clot 100 71 - 199 % 12/26/2019 12:39 EDT [facility] Comment: a. Acquired Protein C [...] Unknown 12/21/2019 9:02 EDT 12/21/2019 16:10 EDT us Provider Outr Resulting Lab HEMATOLOGY & PF4 ORD ERABLES Final Result Performing Organization Address [facility] de Phone Number [facility] [address] [place] [address] * PROGESTERONE (12/21/2019 9:02 EDT) [facility] Progesterone 0.7 See Table ng/mL 12/21/2019 17:27 EDT [facility] Comment: Female Reference Ranges: PHYSIOLOGICAL [...] Unknown 12/21/2019 9:02 EDT 12/21/2019 16:05 EDT us Provider Outr Resulting Lab CHEMISTRY & BLOOD GA S ORDERABLES Final Result [facility] [address] [place] [address] * ESTRADIOL, ADULTS (12/21/2019 9:02 EDT) Estradiol 213 See Note pg/mL 12/21/2019 17:27 EDT [facility] Comment: NOTE: FEMALE REFERENCE RANGES: [...] Unknown 12/21/2019 9:02 EDT 12/21/2019 16:05 EDT us Provider Outr Resulting Lab CHEMISTRY & BLOOD GA S ORDERABLES Final Result [facility] [address] [place] [address] documented in this encounter Visit Diagnoses Not on filedocumented in this encounter Care Teams Gas Pumping Station Operator Relationship Specialty Start Date End Date Aung Vega MD [address] [place] [phone] PCP - General 10/11/08 documented as of this encounter
--- NOTE | 2024-06-27 08:34 | DI.MAMMO_ITS ---
Exam(s) MAMMO SCREENING EXAM: MAMMO SCREENING CLINICAL HISTORY: Screening, Z12.31 TECHNIQUE: Mammograms were interpreted according to the usual protocol including computer analysis w [employer] CAD system, tomosynthesis and C-view imaging. COMPARISON: 2017 through 2021 FINDINGS: The breasts are composed of heterogeneously dense fibroglandular densities, Breast Density category C . No suspicious masses or suspicious microcalcifications are seen. Has been interval decrease in size previously noted nodule in the central left breast, previously noted to be a cyst by ultrasound. No skin thickening or abnormal axillary lymph nodes are seen. There has been no significant change from prior exams. IMPRESSION: BI-RADS Category 2 - Benign Findings Yearly screening mammography is recommended. Breast Density Category C, heterogeneously Dense. The mammogram demonstrates the patient's breast tissue is dense. Dense breast tissue is very common a nd is not abnormal but dense breast tissue can make it harder to find cancer on a mammogram. Also, de nse breast tissue may increase breast cancer risk. This information about the result of the mammogram report was provided to the patient to raise their awareness. Use this report when you speak with the patient about their risks for breast cancer, which includes their family history. At that time, you may recommend additional screening tests (Ultrasound or MRI) as they might be useful based on their r isk. A negative radiographic report should not delay biopsy if a dominant or clinically suspicious mass is present. Up to ten percent of cancers are not identified on mammography. A negative report may reinforce clinical impression. Adenosis and dense breasts may obscure an underlying neoplasm. False positive reports average 6 to 10%.
== END 2024-06-27 00:29 ==
LOC: DI 00:10
PROVIDERS: PCP Student in an Organized Health Care Education/Training Program; Visit Provider Naturopath
DX: Z12.31 Encounter for screening mammogram for malignant neoplasm of breast (principal); R92.333 Mammographic heterogeneous density, bilateral breasts; D24.2 Benign neoplasm of left breast
CPT/HCPCS: 77063; 77067

== ENCOUNTER 2024-07-10 04:31 | Outpatient (CLI) | payer BC, SELFPAY ==
[2024-07-10 07:56] LABS: Bilirubin Negative (Negative); Blood Negative (Negative); Clarity Clear (Clear); Glucose Negative (Negative); Ketones Negative (Negative); Leukocyte Esterase Negative (Negative); Nitrite Negative (Negative); Urobilinogen 0.2 mg/dL (Up to 0.2)
[2024-07-10 08:05] LABS: Hemoglobin A1C 5.5 % (<5.7)
[2024-07-10 08:27] LABS: Iron 109 ug/dL (50-170)
[2024-07-10 08:59] LABS: ALT 24 U/L (14-59); AST 17 U/L (15-37); Albumin 3.5 g/dL (3.4-5.0); Alkaline Phosphatase 36 U/L (46-116); Anion Gap 8.9 mmol/L (3-11); BUN 14 mg/dL (7-18); Bilirubin, Total 0.53 mg/dL (0.2-1.0); CO2 28.1 mmol/L (21.0-32.0); CREATININE 0.8 mg/dL (0.55-1.02); Calcium 8.6 mg/dL (8.5-10.1); Calculated LDL 125 mg/dL (<100); Chloride 109 mmol/L (98-107); Cholesterol 216 mg/dL (<200); Ferritin 64 ng/mL (8-252); Folate 17.9 ng/mL (8.6-20.0); Glucose 97 mg/dL (74-106); HDL Cholesterol 79 mg/dL (40-60); Potassium 3.7 mmol/L (3.5-5.1); Sodium 146 mmol/L (136-145); TSH 1.77 uIU/mL (0.36-3.74); Total Protein 6.8 g/dL (6.4-8.2); Triglyceride 60 mg/dL (<150); Vitamin B12 370 pg/mL (193-986)
[2024-07-10 09:17] LABS: FREE T4 1.05 ng/dL (0.76-1.46)
[2024-07-10 18:21] LABS: T3,Free 3.7 pg/mL (2.8-5.3)
[2024-07-13 14:34] LABS: Nicotinuric Acid <5.0 ng/mL
[2024-07-17 10:32] LABS: Pregnenolone 187 ng/dL (33-248)
== END 2024-07-10 04:32 | disposition home or self-care (01) ==
LOC: LBO 04:31
PROVIDERS: PCP Student in an Organized Health Care Education/Training Program; Visit Provider Naturopath
DX: R42 Dizziness and giddiness (principal); R53.83 Other fatigue; N95.1 Menopausal and female climacteric states; I10 Essential (primary) hypertension; E78.00 Pure hypercholesterolemia, unspecified; Z86.16 Personal history of COVID-19; L65.8 Other specified nonscarring hair loss; F51.01 Primary insomnia; N39.3 Stress incontinence (female) (male); D50.9 Iron deficiency anemia, unspecified; Z13.1 Encounter for screening for diabetes mellitus; E53.9 Vitamin B deficiency, unspecified; E63.9 Nutritional deficiency, unspecified; R35.0 Frequency of micturition
CPT/HCPCS: 36415; 80053; 80061; 84591; 81003; 82607; 82728; 82746; 83036; 83540; 84140; 84270; 84439; 84443; 84481

== ENCOUNTER 2024-12-04 15:32 | Outpatient (REF) | payer BC, SELFPAY ==
--- NOTE | 2024-12-04 15:15 | PAPFT_PTH ---
PATIENT: Julee Alaniz LOC: [facility] U#:[id number] AGE/SX: 54/F ROOM: RE12/04/[address]: Rosa Gee NP : 1970 BED: DIS: 12/04/2024 SPEC #: [id number] RECD: 12/04/24 18:03 STATUS: YARONLexy REJosse #: [id number] ANNA: 12/04/24 15:[address]: Rosa Gee NP DEPT: [facility] Cytology RECD BY: Lilibeth Easley ENTERED: 12/04/24 18:03 SP TYPE: PAPFT OTHR DR: Poppy Leblanc, DO Tissues: 1 - CX/ENDOCX FOR PAP SMEARS Procedures: PAP THIN PREP/[facility] Screening HPV DNA PROBE Comments: [id number] (HPV 16 & 18/45)
== END 2024-12-04 15:33 | disposition home or self-care (01) ==
LOC: LBN 15:32
PROVIDERS: PCP Student in an Organized Health Care Education/Training Program; Visit Provider Nurse Practitioner Women's Health
DX: Z12.4 Encounter for screening for malignant neoplasm of cervix (principal)
CPT/HCPCS: 88142; 87624